=== PATIENT | male | born 1965 | race Two or more races ===

== ENCOUNTER 2020-09-11 16:14 | Emergency (ER) | payer BC ==
--- NOTE | 2020-09-11 17:26 | ED ---
SOB HPI - General Chief Complaint: Shortness of Breath Stated Complaint: SOB/+COVID/Low o2 Time Seen by Provider: 09/11/20 16:42 Source: patient Mode of arrival: wheelchair Limitations: no limitations - History of Present Illness Initial Comments: 55-year-old male presenting today for chief complaint of covert positive 2 weeks increasing shortness of breath. Patient states he tested covid 19 positive 2 weeks ago. patient states that initially symptoms were mild however now he states the past few days he has had increasing shortness of breath he den ies chest pain and leg swelling hemoptysis. He states the shortness of breath is episodic it comes and goes. Patient denies any headaches but endorses mild just. Patient denies any neck stiffness. He admits to loose stools denies nausea vomiting or abdominal pain. Patient admits to fevers and states they've been present on and off throughout the past 2 weeks and seemed be controlled with Tylenol. Patient called his primary care provider as he has persistent symptoms and he feels he should be better by now and she recommended he come to the ER for evaluation as she thinks he may have a covert pneumonia. Patient on arrival has oxygen levels in the upper 80s. he is pleasant and denies additional complaints. - Related Data Home Medications Medication Instructions Recorded Confirmed Acetaminophen [Tylenol Extra 1,000 mg PO Q6H PRN 09/11/20 09/11/20 Strength] Previous Rx's Medication Instructions Recorded Albuterol Inhaler [Ventolin Hfa 1 puff INHALATION Q4H 30 Days #60 09/11/20 Inhaler] puff Azithromycin [Zithromax Z-pack (6 0 mg PO DIRECTED #6 tab 09/11/20 tabs)] Dexamethasone [Decadron] 6 mg PO DAILY 3 Days #3 tab 09/11/20 Allergies Allergy/AdvReac Type Severity Reaction Status Date / Time No Known Allergies Allergy Verified 09/11/20 17:45 Review of Systems ROS Statement: Those systems with pertinent positive or pertinent negative responses have been documented in the HPI. ROS Other: All systems not noted in ROS Statement are negative. Past Medical History Additional Past Medical History / Comment(s): Covid 19 History of Any Multi-Drug Resistant Organisms: None Reported Past Surgical History: No Surgical Hx Reported Past Psychological History: No Psychological Hx Reported Smoking Status: Never smoker Past Alcohol Use History: Occasional Past Drug Use History: None Reported General Exam - General Exam Comments Initial Comments: General: The patient is awake and alert, in no distress Eye: +3 mm pupils are equal, round and reactive to light, extra-ocular movements are intact. No nystagmus. There is normal conjunctiva bilaterally. No signs of icterus. Ears, nose, mouth and throat: There are moist mucous membranes and no oral lesions. Neck: The neck is supple, there is no tenderness or JVD. Cardiovascular: There is a regular rate and rhythm. No murmur, rub or gallop is appreciated. Respiratory: Crackles throughout. Rhonchi and dry cough present respirations are nildly-labored, breath sounds are equal. No wheezes, stridor. Gastrointestinal: Soft, non-distended, non-tender abdomen without masses or organomegaly noted. There is no rebound or guarding present. Musculoskeletal: Normal ROM, no tenderness. Strength 5/5. Sensation intact. Radial pulses equal bilaterally 2+. Neurological: A&O x 3. CN II-XII intact grossly, There are no obvious motor or sensory deficits. Coordination appears grossly intact. Speech is normal. Skin: Skin is warm and dry and no rashes or lesions are noted. No lower extremity edema pain swelling or tenderness. Psychiatric: Cooperative, appropriate mood & affect, normal judgment. Limitations: no limitations Course Vital Signs 09/11/20 16:33 Temperature 98.9 F Pulse Rate 74 Respiratory 24 Rate Blood Pressure 121/72 O2 Sat by Pulse 89 L Oximetry - Reevaluation(s) Reevaluation #1: 95% RA when off O2 for >3 minutes 09/11/20 Reevaluation #2: remains 94-95% on RA, pt offered admission prefers discharge. will return for decreasing oxygen levels, has pulse oximeter at home. 09/11/20 Medical Decision Making - Medical Decision Making 55yo covid + hypoxic - Lab Data Result diagrams: 09/11/20 17:15 09/11/20 17:15 Lab Results 09/11/20 09/11/20 09/11/20 Range/Units 17:15 17:15 17:15 WBC 9.8 (3.8-10.6) k/uL RBC 4.89 (4.30-5.90) m/uL Hgb 14.7 (13.0-17.5) gm/dL Hct 42.3 (39.0-53.0) % MCV 86.6 (80.0-100.0) fL MCH 30.1 (25.0-35.0) pg MCHC 34.7 (31.0-37.0) g/dL RDW 12.5 (11.5-15.5) % Plt Count 275 (150-450) k/uL MPV 8.3 Neutrophils % 91 % Lymphocytes % 5 % Monocytes % 3 % Eosinophils % 0 % Basophils % 0 % Neutrophils # 8.9 H (1.3-7.7) k/uL Lymphocytes # 0.5 L (1.0-4.8) k/uL Monocytes # 0.3 (0-1.0) k/uL Eosinophils # 0.0 (0-0.7) k/uL Basophils # 0.0 (0-0.2) k/uL PT 10.6 (9.0-12.0) sec INR 1.0 (<1.2) APTT 31.9 H (22.0-30.0) sec D-Dimer 1.33 H (<0.60) mg/L FEU Sodium 129 L (137-145) mmol/L Potassium 3.8 (3.5-5.1) mmol/L Chloride 95 L (98-107) mmol/L Carbon Dioxide 22 (22-30) mmol/L Anion Gap 12 mmol/L BUN 13 (9-20) mg/dL Creatinine 0.66 (0.66-1.25) mg/dL Est GFR (CKD-EPI)AfAm >90 (>60 ml/min/1.73 sqM) Est GFR (CKD-EPI)NonAf >90 (>60 ml/min/1.73 sqM) Glucose 114 H (74-99) mg/dL Plasma Lactic Acid Bolivar (0.7-2.0) mmol/L Calcium 8.4 (8.4-10.2) mg/dL Magnesium 2.3 (1.6-2.3) mg/dL Total Bilirubin 0.7 (0.2-1.3) mg/dL AST 136 H (17-59) U/L ALT 116 H (4-49) U/L Alkaline Phosphatase 101 (38-126) U/L Lactate Dehydrogenase 1583 H (313-618) U/L Troponin I (0.000-0.034) ng/mL Total Protein 7.0 (6.3-8.2) g/dL Albumin 3.8 (3.5-5.0) g/dL 09/11/20 09/11/20 Range/Units 17:15 17:15 WBC (3.8-10.6) k/uL RBC (4.30-5.90) m/uL Hgb (13.0-17.5) gm/dL Hct (39.0-53.0) % MCV (80.0-100.0) fL MCH (25.0-35.0) pg MCHC (31.0-37.0) g/dL RDW (11.5-15.5) % Plt Count (150-450) k/uL MPV Neutrophils % % Lymphocytes % % Monocytes % % Eosinophils % % Basophils % % Neutrophils # (1.3-7.7) k/uL Lymphocytes # (1.0-4.8) k/uL Monocytes # (0-1.0) k/uL Eosinophils # (0-0.7) k/uL Basophils # (0-0.2) k/uL PT (9.0-12.0) sec INR (<1.2) APTT (22.0-30.0) sec D-Dimer (<0.60) mg/L FEU Sodium (137-145) mmol/L Potassium (3.5-5.1) mmol/L Chloride (98-107) mmol/L Carbon Dioxide (22-30) mmol/L Anion Gap mmol/L BUN (9-20) mg/dL Creatinine (0.66-1.25) mg/dL Est GFR (CKD-EPI)AfAm (>60 ml/min/1.73 sqM) Est GFR (CKD-EPI)NonAf (>60 ml/min/1.73 sqM) Glucose (74-99) mg/dL Plasma Lactic Acid Bolivar 1.4 (0.7-2.0) mmol/L Calcium (8.4-10.2) mg/dL Magnesium (1.6-2.3) mg/dL Total Bilirubin (0.2-1.3) mg/dL AST (17-59) U/L ALT (4-49) U/L Alkaline Phosphatase (38-126) U/L Lactate Dehydrogenase (313-618) U/L Troponin I <0.012 (0.000-0.034) ng/mL Total Protein (6.3-8.2) g/dL Albumin (3.5-5.0) g/dL Disposition Clinical Impression: Dyspnea, COVID-19 Disposition: HOME SELF-CARE Condition: Good Additional Instructions: Please use medication as discussed. Please follow-up with family doctor in the next 2 days. Monitor oxygen levels and shortness breath at home-if worsening please immediately return. Please return to emergency room if the symptoms increase or worsen or for any other concerns. Prescriptions: Dexamethasone [Decadron] 6 mg PO DAILY 3 Days #3 tab Albuterol Inhaler [Ventolin Hfa Inhaler] 1 puff INHALATION Q4H 30 Days #60 puff Azithromycin [Zithromax Z-pack (6 tabs)] 0 mg PO DIRECTED #6 tab Is patient prescribed a controlled substance at d/c from ED?: No Referrals: Le Light DO [Primary Care Provider] - 1-2 days Time of Disposition: 18:59
[2020-09-11 17:47] LABS: Partial Thromboplastin Time 31.9 sec (22.0-30.0); Prothrombin Time 10.6 sec (9.0-12.0)
[2020-09-11 17:56] LABS: Basophils % (A) 0 %; Eosinophils % (A) 0 %; HCT 42.3 % (39.0-53.0); HGB 14.7 gm/dL (13.0-17.5); Lymphocytes # (A) 0.5 k/uL (1.0-4.8); Lymphocytes % (A) 5 %; MCH 30.1 pg (25.0-35.0); MCHC 34.7 g/dL (31.0-37.0); MCV 86.6 fL (80.0-100.0); Mean Platelet Volume 8.3; Monocytes # (A) 0.3 k/uL (0-1.0); Monocytes % (A) 3 %; Neutrophils # (A) 8.9 k/uL (1.3-7.7); Neutrophils % (A) 91 %; Platelet Count 275 k/uL (150-450); RBC 4.89 m/uL (4.30-5.90); RDW 12.5 % (11.5-15.5); WBC 9.8 k/uL (3.8-10.6)
[2020-09-11 17:58] LABS: D-Dimer 1.33 mg/L FEU (<0.60)
[2020-09-11 18:04] LABS: ALT 116 U/L (4-49); AST 136 U/L (17-59); African American GFR (CKD) >90 (>60 ml/min/1.73 sqM); Albumin 3.8 g/dL (3.5-5.0); Alkaline Phosphatase 101 U/L (38-126); Anion Gap 12 mmol/L; Blood Urea Nitrogen 13 mg/dL (9-20); Calcium 8.4 mg/dL (8.4-10.2); Carbon Dioxide 22 mmol/L (22-30); Chloride 95 mmol/L (98-107); Glucose 114 mg/dL (74-99); LDH 1583 U/L (313-618); Magnesium 2.3 mg/dL (1.6-2.3); Non-African American GFR(CKD) >90 (>60 ml/min/1.73 sqM); Potassium 3.8 mmol/L (3.5-5.1); Sodium 129 mmol/L (137-145); Total Bilirubin 0.7 mg/dL (0.2-1.3)
--- NOTE | 2020-09-11 18:24 | XR ---
EXAMINATION TYPE: XR chest 1V portable DATE OF EXAM: 09/11/2020 COMPARISON: NONE HISTORY: Short of breath TECHNIQUE: Single view FINDINGS: Heart is slightly enlarged. There is coarse interstitial infiltrates throughout the lungs. There are chest leads. Costophrenic angles are clear. IMPRESSION: Moderate bilateral interstitial pneumonia. Borderline cardiomegaly.
[2020-09-11] MEDS ORDERED: DEXAMETHASONE SOD PHOSPHATE 4 MG/ML 1 ML VIAL IV STA (18:48)
[2020-09-11] MEDS ORDERED: AZITHROMYCIN 500 MG TAB PO STA (18:48)
--- NOTE | 2020-09-11 18:53 | CT ---
EXAMINATION TYPE: CT chest angio for PE DATE OF EXAM: 09/11/2020 COMPARISON: None HISTORY: dyspea CT DLP: 476.9 mGycm Automated exposure control for dose reduction was used. CONTRAST: Performed with IV Contrast, patient injected with 90 mL of Isovue 370. Images were obtained from the thoracic inlet to the diaphragm with IV contrast and 3-D post processed images. There is patchy groundglass interstitial infiltrates throughout the lungs. There are a few mediastina l lymph nodes that measure less than 1 cm. There are bilateral bronchial lymph nodes measuring up to 1 cm. Heart size is fairly normal. There is no pericardial effusion. There is normal contrast opacification of the pulmonary arteries. There are no filling defect. There is no pleural effusion. There is no evidence of a pulmonary mass. There is no pericardial effus ion. Upper abdominal soft tissues are intact. The bony thorax is intact. IMPRESSION: No evidence of pulmonary embolism. Diffuse groundglass interstitial pulmonary infiltrates. Extensive small mediastinal and bronchial lymphadenopathy.
[2020-09-11 19:12] VITALS: BP 128/77; PULSE 73; RESP 18; TEMP 98.2
[2020-09-11 19:28] LABS: C Reactive Protein 375.1 mg/L (<10.0)
[2020-09-12 09:55] LABS: Ferritin 5589.5 ng/mL (22.0-322.0)
== END 2020-09-11 19:24 | disposition home or self-care (01) ==
LOC: EC 16:14
DX: U07.1 COVID-19 (principal)
CPT/HCPCS: 36415; 93005; 85379; 80053; 82728; 83605; 83615; 83735; 84484; 85025; 85610; 85730; 86140; 87040; 84145; 71045; 71275; 99285; 96374; J1100; Q9967; 86704; 86803; 87340

== ENCOUNTER 2020-09-15 21:36 | Inpatient (IN) | payer BC ==
--- NOTE | 2020-09-15 22:35 | ED ---
SOB HPI - General Chief Complaint: Shortness of Breath Stated Complaint: Revist,LV,COVID+ Time Seen by Provider: 09/15/20 22:33 Source: patient, RN notes reviewed, old records reviewed Mode of arrival: ambulatory Limitations: no limitations - History of Present Illness Initial Comments: This is a 55-year-old male to the ER for evaluation patient based for evaluation regards to significant shortness of breath with known history of coronavirus. Has no history of breathing difficulties with sooner ER 4 days ago for similar complaint patient has significant shortness of breath has been on home oxygen as well as home pulse ox with pulse ox continuing to decrease while at home. Patient's been resting with no other complaints, no pain in fever off about 2 days ago MD Complaint: shortness of breath, cough, anxiety -: days(s) Severity: moderate Severity scale (1-10): 4 Quality: dull Consistency: constant Improves With: nothing Worsens With: exertion Known History Of: COPD, asthma Context: recent URI Associated Symptoms: denies other symptoms Treatments Prior to Arrival: oxygen, bronchodilator - Related Data Home Medications Medication Instructions Recorded Confirmed Acetaminophen [Tylenol Extra 1,000 mg PO Q6H PRN 09/11/20 09/15/20 Strength] Albuterol Inhaler [Ventolin Hfa 1 puff INHALATION RT-Q4H 09/15/20 09/15/20 Inhaler] Azithromycin [Zithromax Z-pack (6 See Taper PO DAILY 09/15/20 09/15/20 tabs)] Previous Rx's Medication Instructions Recorded Dexamethasone [Decadron] 6 mg PO DAILY 3 Days #3 tab 09/11/20 Allergies Allergy/AdvReac Type Severity Reaction Status Date / Time No Known Allergies Allergy Verified 09/15/20 23:05 Review of Systems ROS Statement: Those systems with pertinent positive or pertinent negative responses have been documented in the HPI. ROS Other: All systems not noted in ROS Statement are negative. Past Medical History Additional Past Medical History / Comment(s): Covid 19 History of Any Multi-Drug Resistant Organisms: None Reported Past Surgical History: No Surgical Hx Reported Past Psychological History: No Psychological Hx Reported Smoking Status: Never smoker Past Alcohol Use History: Occasional Past Drug Use History: None Reported General Exam Limitations: no limitations General appearance: alert, in no apparent distress, anxious, in distress (no significant distress) Head exam: Present: atraumatic, normocephalic, normal inspection Eye exam: Present: normal appearance, PERRL, EOMI. Absent: scleral icterus, conjunctival injection, periorbital swelling ENT exam: Present: normal exam, mucous membranes moist Neck exam: Present: normal inspection. Absent: tenderness, meningismus, lymphadenopathy Respiratory exam: Present: respiratory distress, rhonchi, accessory muscle use, decreased breath sounds, prolonged expiratory. Absent: wheezes, rales, stridor Cardiovascular Exam: Present: regular rate, normal rhythm, normal heart sounds. Absent: systolic murmur, diastolic murmur, rubs, gallop, clicks GI/Abdominal exam: Present: soft, normal bowel sounds. Absent: distended, tenderness, guarding, rebound, rigid Extremities exam: Present: normal inspection, full ROM, normal capillary refill. Absent: tenderness, pedal edema, joint swelling, calf tenderness Back exam: Present: normal inspection Neurological exam: Present: alert, oriented X3, CN II-XII intact Psychiatric exam: Present: normal affect, normal mood Skin exam: Present: warm, dry, intact, normal color. Absent: rash Course Vital Signs 09/15/20 09/15/20 09/15/20 21:39 22:32 23:26 Temperature 99.8 F H Pulse Rate 83 78 Respiratory 26 H 22 20 Rate Blood Pressure 107/63 118/65 O2 Sat by Pulse 82 L 88 L Oximetry - Reevaluation(s) Reevaluation #1: 09/16/20 00:11 Medical record is reviewed 09/16/20 00:11 Prior ER visit is reviewed Reevaluation #2: 09/16/20 00:11 Patient osculation is improving now on high flow nasal cannula humidified - Consultations Consultation #1: Spoke with Dr. melita BUSH to agrees to this admission Medical Decision Making - Medical Decision Making 55 male with coronavirus pneumonia has coronavirus with hypoxia on significant oxygen requirement. Patient is to be admitted for persistent supplemental O2 - Lab Data Result diagrams: 09/15/20 22:05 09/15/20 22:05 Lab Results 09/15/20 09/15/20 09/15/20 Range/Units 22:05 22:05 22:05 WBC 14.8 H (3.8-10.6) k/uL RBC 4.75 (4.30-5.90) m/uL Hgb 14.5 (13.0-17.5) gm/dL Hct 41.5 (39.0-53.0) % MCV 87.4 (80.0-100.0) fL MCH 30.6 (25.0-35.0) pg MCHC 35.0 (31.0-37.0) g/dL RDW 12.5 (11.5-15.5) % Plt Count 422 (150-450) k/uL MPV 7.8 Neutrophils % 86 % Lymphocytes % 6 % Monocytes % 5 % Eosinophils % 0 % Basophils % 2 % Neutrophils # 12.8 H (1.3-7.7) k/uL Lymphocytes # 0.8 L (1.0-4.8) k/uL Monocytes # 0.7 (0-1.0) k/uL Eosinophils # 0.1 (0-0.7) k/uL Basophils # 0.3 H (0-0.2) k/uL PT 11.1 (9.0-12.0) sec INR 1.1 (<1.2) APTT 24.6 (22.0-30.0) sec D-Dimer 3.55 H (<0.60) mg/L FEU Sodium 130 L (137-145) mmol/L Potassium 4.4 (3.5-5.1) mmol/L Chloride 99 (98-107) mmol/L Carbon Dioxide 25 (22-30) mmol/L Anion Gap 6 mmol/L BUN 10 (9-20) mg/dL Creatinine 0.60 L (0.66-1.25) mg/dL Est GFR (CKD-EPI)AfAm >90 (>60 ml/min/1.73 sqM) Est GFR (CKD-EPI)NonAf >90 (>60 ml/min/1.73 sqM) Glucose 118 H (74-99) mg/dL Plasma Lactic Acid Bolivar (0.7-2.0) mmol/L Calcium 8.1 L (8.4-10.2) mg/dL Magnesium 2.0 (1.6-2.3) mg/dL Total Bilirubin 0.9 (0.2-1.3) mg/dL AST 62 H (17-59) U/L ALT 101 H (4-49) U/L Alkaline Phosphatase 84 (38-126) U/L Lactate Dehydrogenase 1372 H (313-618) U/L C-Reactive Protein 152.0 H (<10.0) mg/L Total Protein 6.6 (6.3-8.2) g/dL Albumin 3.3 L (3.5-5.0) g/dL Coronavirus (PCR) (Not Detectd) 09/15/20 09/15/20 Range/Units 22:05 22:37 WBC (3.8-10.6) k/uL RBC (4.30-5.90) m/uL Hgb (13.0-17.5) gm/dL Hct (39.0-53.0) % MCV (80.0-100.0) fL MCH (25.0-35.0) pg MCHC (31.0-37.0) g/dL RDW (11.5-15.5) % Plt Count (150-450) k/uL MPV Neutrophils % % Lymphocytes % % Monocytes % % Eosinophils % % Basophils % % Neutrophils # (1.3-7.7) k/uL Lymphocytes # (1.0-4.8) k/uL Monocytes # (0-1.0) k/uL Eosinophils # (0-0.7) k/uL Basophils # (0-0.2) k/uL PT (9.0-12.0) sec INR (<1.2) APTT (22.0-30.0) sec D-Dimer (<0.60) mg/L FEU Sodium (137-145) mmol/L Potassium (3.5-5.1) mmol/L Chloride (98-107) mmol/L Carbon Dioxide (22-30) mmol/L Anion Gap mmol/L BUN (9-20) mg/dL Creatinine (0.66-1.25) mg/dL Est GFR (CKD-EPI)AfAm (>60 ml/min/1.73 sqM) Est GFR (CKD-EPI)NonAf (>60 ml/min/1.73 sqM) Glucose (74-99) mg/dL Plasma Lactic Acid Bolivar 1.9 (0.7-2.0) mmol/L Calcium (8.4-10.2) mg/dL Magnesium (1.6-2.3) mg/dL Total Bilirubin (0.2-1.3) mg/dL AST (17-59) U/L ALT (4-49) U/L Alkaline Phosphatase (38-126) U/L Lactate Dehydrogenase (313-618) U/L C-Reactive Protein (<10.0) mg/L Total Protein (6.3-8.2) g/dL Albumin (3.5-5.0) g/dL Coronavirus (PCR) Detected A (Not Detectd) - EKG Data -: EKG Interpreted by Me (EKG shows sinus rhythm rate of 76 OK 138 QRS 76 QTC 425) - Radiology Data Radiology results: report reviewed (Chest x-ray does show interstitial pneumonitis, CTA), image reviewed Critical Care Time Critical Care Time: Yes Total Critical Care Time: 31 Disposition Clinical Impression: Dyspnea, COVID-19, Pneumonia due to COVID-19 virus, Weakness, Hypoxia Disposition: ADMITTED IP TO THIS [facility] Condition: Serious Is patient prescribed a controlled substance at d/c from ED?: No Referrals: Le Light DO [Primary Care Provider] - 1-2 days
[2020-09-15] MEDS ORDERED: ALBUTEROL HFA INHALER INHALATION STA (22:36)
[2020-09-15 22:44] LABS: Basophils # (A) 0.3 k/uL (0-0.2); Basophils % (A) 2 %; Eosinophils # (A) 0.1 k/uL (0-0.7); Eosinophils % (A) 0 %; HCT 41.5 % (39.0-53.0); HGB 14.5 gm/dL (13.0-17.5); Lymphocytes # (A) 0.8 k/uL (1.0-4.8); Lymphocytes % (A) 6 %; MCH 30.6 pg (25.0-35.0); MCV 87.4 fL (80.0-100.0); Mean Platelet Volume 7.8; Monocytes # (A) 0.7 k/uL (0-1.0); Monocytes % (A) 5 %; Neutrophils # (A) 12.8 k/uL (1.3-7.7); Neutrophils % (A) 86 %; Platelet Count 422 k/uL (150-450); RBC 4.75 m/uL (4.30-5.90); RDW 12.5 % (11.5-15.5); WBC 14.8 k/uL (3.8-10.6)
[2020-09-15 22:53] LABS: ALT 101 U/L (4-49); AST 62 U/L (17-59); African American GFR (CKD) >90 (>60 ml/min/1.73 sqM); Albumin 3.3 g/dL (3.5-5.0); Alkaline Phosphatase 84 U/L (38-126); Anion Gap 6 mmol/L; Blood Urea Nitrogen 10 mg/dL (9-20); Calcium 8.1 mg/dL (8.4-10.2); Carbon Dioxide 25 mmol/L (22-30); Chloride 99 mmol/L (98-107); Glucose 118 mg/dL (74-99); LDH 1372 U/L (313-618); Non-African American GFR(CKD) >90 (>60 ml/min/1.73 sqM); Potassium 4.4 mmol/L (3.5-5.1); Sodium 130 mmol/L (137-145); Total Bilirubin 0.9 mg/dL (0.2-1.3); Total Protein 6.6 g/dL (6.3-8.2)
--- NOTE | 2020-09-15 23:03 | XR ---
EXAMINATION TYPE: XR chest 1V portable DATE OF EXAM: 09/15/2020 COMPARISON: September 11, 2020 HISTORY: Short of breath TECHNIQUE: Single view FINDINGS: Heart is enlarged. There is pulmonary interstitial infiltrates. There is no pleural effusio n. There are chest leads. Pulmonary vascularity is difficult to evaluate. IMPRESSION: Pulmonary interstitial pneumonia. Heart failure not excluded. Interstitial pneumonia is slightly worse than previous exam.
[2020-09-15 23:12] LABS: INR 1.1 (<1.2); Partial Thromboplastin Time 24.6 sec (22.0-30.0); Prothrombin Time 11.1 sec (9.0-12.0)
[2020-09-15 23:44] LABS: D-Dimer 3.55 mg/L FEU (<0.60)
[2020-09-15] MEDS ORDERED: SODIUM CHLORIDE 0.9% 1,000 ML IV SCH (23:45)
[2020-09-15] MEDS ORDERED: AZITHROMYCIN 500 MG in SODIUM CHLORIDE 0.9% 250 ML IVPB STA (23:57)
[2020-09-16] MEDS ORDERED: DEXAMETHASONE SOD PHOSPHATE 10 MG/ML 1 ML VIAL IV STA
--- NOTE | 2020-09-16 00:12 | CT ---
EXAMINATION TYPE: CT angio chest DATE OF EXAM: 09/16/2020 COMPARISON: September 11, 2020 HISTORY: R/O PE, SOB CT DLP: 505.50 mGycm Automated exposure control for dose reduction was used. CONTRAST: Performed with IV Contrast, patient injected with 80 mL of Isovue 370. There are 3-D post processed images. There is extensive pulmonary interstitial groundglass infiltrate in both lungs. Heart appears normal in size. There is no pericardial effusion. There is no pleural effusion. Upper abdominal soft tissues are intact. There is normal contrast opacification of the pulmonary arteries. There are no filling defects. There are a few bilateral bronchial lymph nodes that measure up to 1 cm. There are a few mediastinal perit latasha lymph nodes that measure up to 1 cm. Thoracic aorta is intact. There is no aneurysm or dissec tion. The ascending aorta measures 3.2 cm. Thoracic spine is intact. There is no compression fracture. Sternum is intact. Upper abdominal soft t issues are intact. IMPRESSION: No evidence of pulmonary embolism. Diffuse groundglass interstitial pneumonia appears slightly worse than recent exam. Mild mediastinal and bronchial adenopathy unchanged.
[2020-09-16] MEDS ORDERED: HEPARIN SODIUM,PORCINE 5,000 UNIT/ML 1 ML VIAL IV ONE (00:36)
[2020-09-16] MEDS ORDERED: HEPARIN SODIUM,PORCINE 5,000 UNIT/ML 1 ML VIAL IV PRN (00:36)
[2020-09-16] MEDS ORDERED: HEPARIN SOD,PORK IN 0.45% NACL 25,000 UNIT in 0.45% NACL 1 250ML.BAG IV SCH (00:45)
--- NOTE | 2020-09-16 07:49 | US ---
EXAMINATION TYPE: US venous doppler duplex LE BI DATE OF EXAM: 09/16/2020 7:27 AM COMPARISON: NONE CLINICAL HISTORY: DVT. positive COVID, no symptoms SIDE PERFORMED: Bilateral TECHNIQUE: The lower extremity deep venous system is examined utilizing real time linear array sonog gabriela with graded compression, doppler sonography and color-flow sonography. VESSELS IMAGED: Common Femoral Vein Deep Femoral Vein Greater Saphenous Vein * Femoral Vein Popliteal Vein Small Saphenous Vein * Proximal Calf Veins (* superficial vessels) Right Leg: Negative for DVT, rouleaux flow seen Left Leg: Negative for DVT, rouleaux flow seen Grayscale, color doppler, spectral doppler imaging performed of the deep veins of the bilateral lower extremities. There is normal flow, compressibility, vascular waveforms. IMPRESSION: No ultrasound evidence for acute DVT in either lower extremity.
[2020-09-16] MEDS: ALBUTEROL HFA INHALER INHALATION PRN ×2 (08:20→11:20)
[2020-09-16] MEDS ORDERED: ENOXAPARIN 40 MG/0.4 ML SYRINGE SQ SCH (09:00)
[2020-09-16 10:53] LABS: Ferritin 3070.3 ng/mL (22.0-322.0)
[2020-09-16] MEDS ORDERED: ENOXAPARIN 60 MG/0.6 ML SYRINGE SQ SCH ×2 (12:00→21:00)
--- NOTE | 2020-09-16 12:25 | P.HPIM ---
History of Present Illness 55-year-old male came in with compensative shortness of breath patient was diagnosed with the cold wind 19 as per the patient he was diagnosed with for more than 2 weeks ago started having shortness of breath for last few days. Patient is positive for coronary patient is requiring 10 L of oxygen. As have elevated d-dimer and other informative markers. Patient is bit hypotensive patient denied any nausea vomiting diarrhea. had mild low-grade fever today. CT angios the chest is consistent with the covid 19 pneumonia. No evidence of pulmonary embolism or any other infiltrate patient did have bronchial and mediastinal adenopathy. She was using azithromycin and Decadron as an outpatient. Review of Systems REVIEW OF SYSTEMS: CONSTITUTIONAL: As mentioned in HPI HEENT: No recent visual problems or hearing problems. Denied any sore throat. CARDIOVASCULAR: No chest pain, orthopnea, PND, no palpitations, no syncope. PULMONARY:no hemoptysis. GASTROINTESTINAL: No diarrhea, no nausea, no vomiting, no abdominal pain. NEUROLOGICAL: No headaches, no weakness, no numbness. HEMATOLOGICAL: Denies any bleeding or petechiae. GENITOURINARY: Denies any burning micturition, frequency, or urgency. MUSCULOSKELETAL/RHEUMATOLOGICAL: Denies any joint pain, swelling, or any muscle pain. ENDOCRINE: Denies any polyuria or polydipsia. The rest of the 14-point review of systems is negative. Past Medical History Additional Past Medical History / Comment(s): Covid 19 History of Any Multi-Drug Resistant Organisms: None Reported Past Surgical History: No Surgical Hx Reported Past Anesthesia/Blood Transfusion Reactions: No Reported Reaction Past Psychological History: No Psychological Hx Reported Smoking Status: Former smoker Past Alcohol Use History: Occasional Past Drug Use History: None Reported Medications and Allergies Home Medications Medication Instructions Recorded Confirmed Type Acetaminophen [Tylenol Extra 1,000 mg PO Q6H PRN 09/11/20 09/15/20 History Strength] Dexamethasone [Decadron] 6 mg PO DAILY 3 Days #3 tab 09/11/20 09/15/20 Rx Albuterol Inhaler [Ventolin Hfa 1 puff INHALATION RT-Q4H 09/15/20 09/15/20 History Inhaler] Azithromycin [Zithromax Z-pack (6 See Taper PO DAILY 09/15/20 09/15/20 History tabs)] Allergies Allergy/AdvReac Type Severity Reaction Status Date / Time No Known Allergies Allergy Verified 09/15/20 23:05 Physical Exam Vitals: Vital Signs Temp Pulse Pulse Resp BP BP Pulse Ox 09/16/20 08:00 97.5 F L 60 18 95/60 91 L 09/16/20 05:00 54 L 20 09/16/20 04:00 98.9 F 54 L 18 97/60 94 L 09/16/20 01:00 98.9 F 71 20 113/69 92 L 09/16/20 00:40 56 L 20 103/58 92 L 09/16/20 00:00 74 22 117/71 91 L 09/15/20 23:26 78 20 118/65 88 L 09/15/20 22:32 22 09/15/20 21:39 99.8 F H 83 26 H 107/63 82 L Intake and Output 09/15/20 09/16/20 09/16/20 22:59 06:59 14:59 Intake Total 122.74 Output Total 650 Balance -527.26 Intake: Intake, IV Titration 122.74 Amount Heparin Sod,Pork in 0.45% 122.74 NaCl 25,000 unit In 0.45 % NaCl 1 250ml.bag @ 18 UNITS/KG/HR 16.329 mls/hr IV .[id number] [facility] Rx#: [id number] Output: Urine 650 Other: Voiding Method Urinal Urinal # Voids 500 2 Weight 90.718 kg 90.718 kg PHYSICAL EXAMINATION: GENERAL: The patient is alert and oriented x3, not in any acute distress. Well developed, well nourished. HEENT: Pupils are round and equally reacting to light. EOMI. No scleral icterus. No conjunctival pallor. Normocephalic, atraumatic. No pharyngeal erythema. No thyromegaly. CARDIOVASCULAR: S1 and S2 present. No murmurs, rubs, or gallops. PULMONARY: Chest is clear to auscultation, no wheezing or crackles. ABDOMEN: Soft, nontender, nondistended, normoactive bowel sounds. No palpable organomegaly. MUSCULOSKELETAL: No joint swelling or deformity. EXTREMITIES: No cyanosis, clubbing, or pedal edema. NEUROLOGICAL: Gross neurological examination did not reveal any focal deficits. SKIN: No rashes. Note: Because of COVID 19 isolation, some of the history and physical exam findings are indirect and obtained from nursing staff, and other physician examinations to avoid unnecessary contact with the patient. Results CBC & Chem 7: 09/15/20 22:05 09/15/20 22:05 Labs: Abnormal Lab Results - Last 24 Hours (Table) 09/15/20 09/15/20 09/15/20 Range/Units 22:05 22:05 22:05 WBC 14.8 H (3.8-10.6) k/uL Neutrophils # 12.8 H (1.3-7.7) k/uL Lymphocytes # 0.8 L (1.0-4.8) k/uL Basophils # 0.3 H (0-0.2) k/uL APTT (22.0-30.0) sec D-Dimer 3.55 H (<0.60) mg/L FEU Sodium 130 L (137-145) mmol/L Creatinine 0.60 L (0.66-1.25) mg/dL Glucose 118 H (74-99) mg/dL Calcium 8.1 L (8.4-10.2) mg/dL Ferritin 3070.3 H (22.0-322.0) ng/mL AST 62 H (17-59) U/L ALT 101 H (4-49) U/L Lactate Dehydrogenase 1372 H (313-618) U/L C-Reactive Protein 152.0 H (<10.0) mg/L Albumin 3.3 L (3.5-5.0) g/dL Coronavirus (PCR) (Not Detectd) 09/15/20 09/16/20 Range/Units 22:37 07:40 WBC (3.8-10.6) k/uL Neutrophils # (1.3-7.7) k/uL Lymphocytes # (1.0-4.8) k/uL Basophils # (0-0.2) k/uL APTT 106.7 H* (22.0-30.0) sec D-Dimer (<0.60) mg/L FEU Sodium (137-145) mmol/L Creatinine (0.66-1.25) mg/dL Glucose (74-99) mg/dL Calcium (8.4-10.2) mg/dL Ferritin (22.0-322.0) ng/mL AST (17-59) U/L ALT (4-49) U/L Lactate Dehydrogenase (313-618) U/L C-Reactive Protein (<10.0) mg/L Albumin (3.5-5.0) g/dL Coronavirus (PCR) Detected A (Not Detectd) Thrombosis Risk Factor Assmnt - Choose All That Apply Each Factor Represents 1 point: Age 41-60 years Other Risk Factors: No Other congenital or acquired thrombophilia - If yes, enter type in comment: No Thrombosis Risk Factor Assessment Total Risk Factor Score: 1 Thrombosis Risk Factor Assessment Level: Low Risk Assessment and Plan Plan: -Acute hypoxic respiratory failure secondary to Covid 19 can you with the oxygen as needed and close clinical monitoring, patient had elevated d-dimer because of which patient was started on 60 mg twice a day of Lovenox. He does have s ignificantly elevated inflammatory markers patient was started on Decadron as well. Patient will need Remdesevir. Infectious disease and pulmonary were consulted -Hypovolemic hyponatremia: IV fluids at 75 mL per hour -Elevated liver enzymes secondary to coronavirus infection. -Ruled out pulmonary embolism. -DVT prophylaxis as mentioned above GI prophylaxis with Pepcid
[2020-09-16] MEDS: dexAMETHasone 2 MG TAB PO SCH (13:01)
--- NOTE | 2020-09-16 15:14 | P.CNPUL ---
History of Present Illness Consult date: 09/16/20 Reason for consult: dyspnea, pneumonia History of present illness: 55-year-old male patient diagnosed having coronavirus/Coreg 19 infection more than 2 weeks ago and he started having shortness of breath. His ago. The patient currently is in the emergency department and is quite hypoxic on 10 L of oxygen nasal cannula. The patient started having symptoms on 08/31/2020 and the patient was having on and off fever. He consulted with a physician. The testing was done and he was positive at that time. His condition got worse and the patient's breathing was getting worse over this past few days and for that reason he came into the hospital. On admission, the patient's ferritin level was 3017, LDH was 1372, CRP was 172. Note that the patient was in the emergency department on 09/11/2020. At times he was diagnosed having COVID 19 and the patient a pulse ox of 94-95% on room air oxygen and the patient was asked to monitor his pulse ox and he was discharged home. He was discharged home on Decadron 6 mg along with Zithromax and albuterol rescue inhaler. Few days following that, the patient came back to the hospital for worsening shortness of breath and hypoxemia. Note that the patient to CAT scans on 09/11/2020 09/16/2020 and there was obvious worsening in the diffuse groundglass bilateral pulmonary infiltrates. No evidence of any pulmonary embolism. Currently is on oxygen at 10 L per minute nasal cannula. His pulse ox is around 88%. Note that the CAT scan of the chest was done on 09/15/2020 raised the possibility of a small filling defect in the right lower lobe pulmonary artery branch and the patient had a Doppler of the lower extremities was negative and the patient was started on anticoagulants and the patient is currently on Lovenox 50 mg subcu every 12 hours. Review of Systems CONSTITUTIONAL: As mentioned in HPI HEENT: No recent visual problems or hearing problems. Denied any sore throat. CARDIOVASCULAR: No chest pain, orthopnea, PND, no palpitations, no syncope. PULMONARY:no hemoptysis.worsening shortness of breath GASTROINTESTINAL: No diarrhea, no nausea, no vomiting, no abdominal pain. NEUROLOGICAL: No headaches, no weakness, no numbness. HEMATOLOGICAL: Denies any bleeding or petechiae. GENITOURINARY: Denies any burning micturition, frequency, or urgency. MUSCULOSKELETAL/RHEUMATOLOGICAL: Denies any joint pain, swelling, or any muscle pain. ENDOCRINE: Denies any polyuria or polydipsia. The rest of the 14-point review of systems is negative. Past Medical History Additional Past Medical History / Comment(s): Covid 19 History of Any Multi-Drug Resistant Organisms: None Reported Past Surgical History: No Surgical Hx Reported Past Anesthesia/Blood Transfusion Reactions: No Reported Reaction Past Psychological History: No Psychological Hx Reported Smoking Status: Former smoker Past Alcohol Use History: Occasional Past Drug Use History: None Reported Medications and Allergies Home Medications Medication Instructions Recorded Confirmed Type Acetaminophen [Tylenol Extra 1,000 mg PO Q6H PRN 09/11/20 09/15/20 History Strength] Dexamethasone [Decadron] 6 mg PO DAILY 3 Days #3 tab 09/11/20 09/15/20 Rx Albuterol Inhaler [Ventolin Hfa 1 puff INHALATION RT-Q4H 09/15/20 09/15/20 History Inhaler] Azithromycin [Zithromax Z-pack (6 See Taper PO DAILY 09/15/20 09/15/20 History tabs)] Allergies Allergy/AdvReac Type Severity Reaction Status Date / Time No Known Allergies Allergy Verified 09/15/20 23:05 Physical Exam Vitals: Vital Signs Temp Pulse Pulse Resp BP BP Pulse Ox 09/16/20 08:00 97.5 F L 60 18 95/60 91 L 09/16/20 05:00 54 L 20 09/16/20 04:00 98.9 F 54 L 18 97/60 94 L 09/16/20 01:00 98.9 F 71 20 113/69 92 L 09/16/20 00:40 56 L 20 103/58 92 L 09/16/20 00:00 74 22 117/71 91 L 09/15/20 23:26 78 20 118/65 88 L 09/15/20 22:32 22 09/15/20 21:39 99.8 F H 83 26 H 107/63 82 L Intake and Output 09/16/20 09/16/20 09/16/20 06:59 14:59 22:59 Intake Total 122.74 Output Total 650 Balance -527.26 Intake: Intake, IV Titration 122.74 Amount Heparin Sod,Pork in 0.45% 122.74 NaCl 25,000 unit In 0.45 % NaCl 1 250ml.bag @ 18 UNITS/KG/HR 16.329 mls/hr IV .[id number] [facility] Rx#: [id number] Output: Urine 650 Other: Voiding Method Urinal Urinal # Voids 500 2 Weight 90.718 kg GENERAL: The patient is alert and oriented x3, not in any acute distress. Well developed, well nourished. the patient is currently on 10 L of oxygen by nasal cannula HEENT: Pupils are round and equally reacting to light. EOMI. No scleral icterus. No conjunctival pallor. Normocephalic, atraumatic. No pharyngeal erythema. No thyromegaly. CARDIOVASCULAR: S1 and S2 present. No murmurs, rubs, or gallops. PULMONARY: Chest is clear to auscultation, no wheezingindications bilateral crackles. ABDOMEN: Soft, nontender, nondistended, normoactive bowel sounds. No palpable organomegaly. MUSCULOSKELETAL: No joint swelling or deformity. EXTREMITIES: No cyanosis, clubbing, or pedal edema. NEUROLOGICAL: Gross neurological examination did not reveal any focal deficits. SKIN: No rashes. Results - Laboratory Findings CBC and BMP: 09/15/20 22:05 09/15/20 22:05 ABG WBC 14.8 k/uL (3.8-10.6) H 09/15/20 22:05 RBC 4.75 m/uL (4.30-5.90) 09/15/20 22:05 Hgb 14.5 gm/dL (13.0-17.5) 09/15/20 22:05 Hct 41.5 % (39.0-53.0) 09/15/20 22:05 MCV 87.4 fL (80.0-100.0) 09/15/20 22:05 MCH 30.6 pg (25.0-35.0) 09/15/20 22:05 MCHC 35.0 g/dL (31.0-37.0) 09/15/20 22:05 RDW 12.5 % (11.5-15.5) 09/15/20 22:05 Plt Count 422 k/uL (150-450) 09/15/20 22:05 MPV 7.8 09/15/20 22:05 Neutrophils % 86 % 09/15/20 22:05 Lymphocytes % 6 % 09/15/20 22:05 Monocytes % 5 % 09/15/20 22:05 Eosinophils % 0 % 09/15/20 22:05 Basophils % 2 % 09/15/20 22:05 Neutrophils # 12.8 k/uL (1.3-7.7) H 09/15/20 22:05 Lymphocytes # 0.8 k/uL (1.0-4.8) L 09/15/20 22:05 Monocytes # 0.7 k/uL (0-1.0) 09/15/20 22:05 Eosinophils # 0.1 k/uL (0-0.7) 09/15/20 22:05 Basophils # 0.3 k/uL (0-0.2) H 09/15/20 22:05 PT 11.1 sec (9.0-12.0) 09/15/20 22:05 INR 1.1 (<1.2) 09/15/20 22:05 APTT 106.7 sec (22.0-30.0) H* 09/16/20 07:40 D-Dimer 3.55 mg/L FEU (<0.60) H 09/15/20 22:05 Sodium 130 mmol/L (137-145) L 09/15/20 22:05 Potassium 4.4 mmol/L (3.5-5.1) 09/15/20 22:05 Chloride 99 mmol/L (98-107) 09/15/20 22:05 Carbon Dioxide 25 mmol/L (22-30) 09/15/20 22:05 Anion Gap 6 mmol/L 09/15/20 22:05 BUN 10 mg/dL (9-20) 09/15/20 22:05 Creatinine 0.60 mg/dL (0.66-1.25) L 09/15/20 22:05 Est GFR (CKD-EPI)AfAm >90 (>60 ml/min/1.73 sqM) 09/15/20 22:05 Est GFR (CKD-EPI)NonAf >90 (>60 ml/min/1.73 sqM) 09/15/20 22:05 Glucose 118 mg/dL (74-99) H 09/15/20 22:05 Plasma Lactic Acid [place] 1.9 mmol/L (0.7-2.0) 09/15/20 22:05 Calcium 8.1 mg/dL (8.4-10.2) L 09/15/20 22:05 Magnesium 2.0 mg/dL (1.6-2.3) 09/15/20 22:05 Ferritin 3070.3 ng/mL (22.0-322.0) H 09/15/20 22:05 Total Bilirubin 0.9 mg/dL (0.2-1.3) 09/15/20 22:05 AST 62 U/L (17-59) H 09/15/20 22:05 ALT 101 U/L (4-49) H 09/15/20 22:05 Alkaline Phosphatase 84 U/L (38-126) 09/15/20 22:05 Lactate Dehydrogenase 1372 U/L (313-618) H 09/15/20 22:05 C-Reactive Protein 152.0 mg/L (<10.0) H 09/15/20 22:05 Total Protein 6.6 g/dL (6.3-8.2) 09/15/20 22:05 Albumin 3.3 g/dL (3.5-5.0) L 09/15/20 22:05 Procalcitonin 0.08 ng/mL (0.02-0.09) 09/15/20 22:05 PT/INR, D-dimer PT 11.1 sec (9.0-12.0) 09/15/20 22:05 INR 1.1 (<1.2) 09/15/20 22:05 D-Dimer 3.55 mg/L FEU (<0.60) H 09/15/20 22:05 Abnormal lab findings: Abnormal Labs 09/15/20 09/15/20 09/15/20 22:05 22:05 22:05 WBC 14.8 H Neutrophils # 12.8 H Lymphocytes # 0.8 L Basophils # 0.3 H APTT D-Dimer 3.55 H Sodium 130 L Creatinine 0.60 L Glucose 118 H Calcium 8.1 L Ferritin 3070.3 H AST 62 H ALT 101 H Lactate Dehydrogenase 1372 H C-Reactive Protein 152.0 H Albumin 3.3 L Coronavirus (PCR) 09/15/20 09/16/20 22:37 07:40 WBC Neutrophils # Lymphocytes # Basophils # APTT 106.7 H* D-Dimer Sodium Creatinine Glucose Calcium Ferritin AST ALT Lactate Dehydrogenase C-Reactive Protein Albumin Coronavirus (PCR) Detected A - Diagnostic Findings Chest x-ray: image reviewed CT scan - chest: image reviewed Assessment and Plan Plan: 1 acute bilateral Covid 19 pneumonia with interval worsening in the bilateral groundglass pulmonary infiltrates as noted on the CAT scan of the chest that was done on 09/15/2020 and compared to the previous CTA of 09/11/2020.. Original diagnosis was on 08/31/2020 and the patient is currently outside the window for Remdesivir treatment, and he was receiving Decadron on an outpatient basis. 2 questionable filling defect in the right lower lobe pulmonary artery branch,, Doppler of the lower extremities negative. 3 acute hypoxic respiratory failure secondary to above 4 shortness of breath secondary to above 5 elevated inflammatory markers secondary to above Plan the patient is outside the window for Remdesivir Treatment Offered therapeutic dose of Lovenox 1 mg per KG every 12 hours Offer her Decadron 6 mg by mouth was started the patient on supplements including vitamin C, vitamin D, Zinc, melatonin and Pepcid oxygen at 10 L per minute nasal cannula and titrated flow to maintain a saturation above 90% We'll continue to follow
[2020-09-16] MEDS: ENOXAPARIN 100 MG/ML SYRINGE SQ SCH (15:25)
[2020-09-16] MEDS: SODIUM CHLORIDE 0.9% 1,000 ML IV SCH (15:27)
[2020-09-16] MEDS: ALBUTEROL HFA INHALER INHALATION SCH ×2 (16:24→20:42)
[2020-09-16] MEDS: FAMOTIDINE 20 MG TAB PO SCH (22:10)
--- NOTE | 2020-09-17 00:09 | CONS ---
CONSULTATION DATE OF SERVICE: 09/16/2020 REASON FOR STAY: COVID-19 infection. HISTORY OF PRESENT ILLNESS: The patient is a 55-year-old male who started having symptoms now two days ago and this patient started having increasing shortness of breath. The patient did have body aches and sore throat initially. No vomiting. The patient mentioned he came to the ER about a week ago and the patient was diagnosed with COVID-19 infection. The patient had been sent home on steroids and Zithromax. The patient mentions coming back to the ER last night with worsening shortness of breath, unable to take a deep breath. The patient also complaining of cough which is moderate intensity, not bringing up any sputum. He did have some lower ribcage chest pain from taking a deep breath or cough. No nausea, no vomiting. No abdominal pain or any diarrhea. With these symptoms the patient was evaluated by the ER physician. On arrival to the ER, the patient has been running a low-grade fever of 99.8 degrees Fahrenheit. He was hypoxic with O2 sats of 92% on room air. Currently on 15 L high-flow oxygen. The patient did have elevated white count 14.8 with evidence of leukopenia. D-dimer was elevated at 3.55. [place] PCR positive. Procalcitonin was normal. CRP elevated. The patient did have chest involvement. CT angiogram of the chest reviewed and did show evidence of PE and bilateral ground-glass opacities. The patient has been started on Lovenox therapeutic dose in addition to dexamethasone and IV fluids and admitted to hospital. Infectious Disease was consulted for further management. REVIEW OF SYSTEMS: Positive points have been mentioned in HPI. Rest of the systems are negative. PAST MEDICAL HISTORY: No major illnesses. PAST SURGICAL HISTORY: No surgeries. SOCIAL HISTORY: No smoking, ETOH , and no drug use. FAMILY HISTORY: No pertinent findings noticed. ALLERGIES: No known drug allergies. MEDICATIONS: The patient is currently on IV fluids, Pepcid, Lovenox. Dexamethasone and Ventolin inhaler. PHYSICAL EXAMINATION: Blood pressure is 100/51 with a pulse of 64, temperature is 97.7 he is 93% on 15 L high flow oxygen. General description is an elderly male lying in bed in mild respiratory distress. Mild tachypnea, but no accessory muscles of respiration use. Respiratory system: Unlabored breathing. Coarse crackles bilaterally. No wheeze. HEART: S1, S2. Regular rate and rhythm. ABDOMEN: Soft, no tenderness. EXTREMITIES: No edema of the feet. LABS: Hemoglobin is 14.4, white count 14.8, D. dimer 3.55, creatinine 0.60. Liver enzymes mildly elevated. LDH/CRP elevated. Procalcitonin was normal. DIAGNOSTIC IMPRESSION/PLAN: 1. Patient admitted to the hospital with increasing shortness of breath, symptoms more than 10 days with evidence of bilateral pneumonia on the CT and a chest x-ray, likely acute Covid 19, failing outpatient oral Zithromax and Dexamethasone therapy. 2. Patient with evidence of pulmonary embolism. 3. No evidence of secondary bacterial pneumonia. PLAN: 1. The patient may benefit for high dose of steroids than the standard dose, will discuss with Pulmonary. 2. Continue with the Lovenox. We will add zinc sulfate and vitamin C. 3. Patient out of the therapeutic window for Remdesivir but may benefit from . 4. support. 5. We will follow on clinical condition and further adjust medication if needed. Thank you for this consultation. Will follow this patient along with you. MMODL / IJN: [id number] /
[2020-09-17] MEDS: ALBUTEROL HFA INHALER INHALATION SCH ×6 (01:00→20:19)
[2020-09-17] MEDS: SODIUM CHLORIDE 0.9% 1,000 ML IV SCH ×2 (04:27→16:26)
[2020-09-17 07:29] LABS: Basophils # (A) 0.1 k/uL (0-0.2); Basophils % (A) 0 %; Eosinophils % (A) 0 %; HCT 37.6 % (39.0-53.0); HGB 12.5 gm/dL (13.0-17.5); Lymphocytes # (A) 0.8 k/uL (1.0-4.8); Lymphocytes % (A) 7 %; MCH 29.9 pg (25.0-35.0); MCHC 33.2 g/dL (31.0-37.0); MCV 90.1 fL (80.0-100.0); Mean Platelet Volume 7.7; Monocytes # (A) 0.5 k/uL (0-1.0); Monocytes % (A) 4 %; Neutrophils # (A) 9.8 k/uL (1.3-7.7); Neutrophils % (A) 87 %; Platelet Count 375 k/uL (150-450); RBC 4.18 m/uL (4.30-5.90); RDW 12.7 % (11.5-15.5); WBC 11.3 k/uL (3.8-10.6)
[2020-09-17] MEDS: dexAMETHasone 2 MG TAB PO SCH (08:55)
[2020-09-17] MEDS: ASCORBIC ACID 500 MG TAB PO SCH (08:55)
[2020-09-17] MEDS: ZINC SULFATE 220 MG CAP PO SCH (08:55)
[2020-09-17] MEDS: FAMOTIDINE 20 MG TAB PO SCH ×2 (08:55→22:40)
[2020-09-17] MEDS: ENOXAPARIN 100 MG/ML SYRINGE SQ SCH (08:55)
[2020-09-17 11:23] LABS: African American GFR (CKD) 131.2 (60.0-200.0); Albumin 3.2 g/dL (3.80-4.90); Albumin/Globulin Ratio 1.45 (1.60-3.17); Anion Gap 7.9 mmol/L (4.00-12.00); BUN/Creat Ratio 21.67 Ratio (12.00-20.00); Calcium 7.8 mg/dL (8.7-10.3); Carbon Dioxide 26.1 mmol/L (21.6-31.8); Globulin 2.2 g/dL (1.6-3.3); Non-African American GFR(CKD) 113.2 (60.0-200.0); Potassium 4.5 mmol/L (3.5-5.5); Total Bilirubin 0.5 mg/dL (0.3-1.2); Total Protein 5.4 g/dL (6.2-8.2)
--- NOTE | 2020-09-17 11:30 | P.PN ---
Subjective Progress Note Date: 09/17/20 55-year-old male patient diagnosed having coronavirus/Coreg 19 infection more t busch 2 weeks ago and he started having shortness of breath. His ago. The patient currently is in the emergency department and is quite hypoxic on 10 L of oxygen nasal cannula. The patient started having symptoms on 08/31/2020 and the patient was having on and off fever. He consulted with a physician. The testing was done and he was positive at that time. His condition got worse and the patient's breathing was getting worse over this past few days and for that reason he came into the hospital. On admission, the patient's ferritin level was 3017, LDH was 1372, CRP was 172. Note that the patient was in the emergency department on 09/11/2020. At times he was diagnosed having COVID 19 and the patient a pulse ox of 94-95% on room air oxygen and the patient was asked to monitor his pulse ox and he was discharged home. He was discharged home on Decadron 6 mg along with Zithromax and albuterol rescue inhaler. Few days following that, the patient came back to the hospital for worsening shortness of breath and hypoxemia. Note that the patient to CAT scans on 09/11/2020 09/16/2020 and there was obvious worsening in the diffuse groundglass bilateral pulmonary infiltrates. No evidence of any pulmonary embolism. Currently is on oxygen at 10 L per minute nasal cannula. His pulse ox is around 88%. Note that the CAT scan of the chest was done on 09/15/2020 raised the possibility of a small filling defect in the right lower lobe pulmonary artery branch and the patient had a Doppler of the lower extremities was negative and the patient was started on anticoagulants and the patient is currently on Lovenox 50 mg subcu every 12 hours. on 09/17/2020, the patient has shown some improvement in his oxygenation the patient is currently on 6 L of oxygen by nasal cannula. Doing slightly better compared to yesterday. Still coughing. He did have some difficulty with sleeping last night. He was awake for extended period of time. He is also on anticoagulation. He is doing well. No nausea. No vomiting. no Diarrhea. no Abdominal pain. Inflammatory markers of repeated tomorrow. Objective - Vital Signs Vital signs: Vital Signs Temp 98.0 F 09/17/20 08:59 Pulse 82 09/17/20 08:59 Resp 18 12/08/20 09:09 BP 88/52 09/17/20 08:59 Pulse Ox 92 L 09/17/20 09:09 Intake & Output 09/16/20 09/17/20 09/17/20 18:59 06:59 18:59 Intake Total 697.74 452 Output Total 650 350 Balance 47.74 452 -350 Weight 94.5 kg Intake: Intake, IV Titration 197.74 Amount Heparin Sod,Pork in 0.45% 122.74 NaCl 25,000 unit In 0.45 % NaCl 1 250ml.bag @ 18 UNITS/KG/HR 16.329 mls/hr IV .[id number] [facility] Rx#: [id number] Sodium Chloride 0.9% 1, 75 000 ml @ 75 mls/hr IV . [id number] [facility] Rx#:[id number] Oral 500 250 Blood Product 0 202 Ffp Pher Conval Covid19 0 202 Acda 4 Unit [id number] Output: Urine 650 350 Other: Voiding Method Urinal Urinal # Voids 2 350 - Exam GENERAL: The patient is alert and oriented x3, not in any acute distress. Well developed, well nourished. the patient is currently on 6 L of oxygen by nasal cannula HEENT: Pupils are round and equally reacting to light. EOMI. No scleral icterus. No conjunctival pallor. Normocephalic, atraumatic. No pharyngeal erythema. No thyromegaly. CARDIOVASCULAR: S1 and S2 present. No murmurs, rubs, or gallops. PULMONARY: Chest is clear to auscultation, no wheezingindications bilateral crackles. ABDOMEN: Soft, nontender, nondistended, normoactive bowel sounds. No palpable organomegaly. MUSCULOSKELETAL: No joint swelling or deformity. EXTREMITIES: No cyanosis, clubbing, or pedal edema. NEUROLOGICAL: Gross neurological examination did not reveal any focal deficits. SKIN: No rashes. - Labs CBC & Chem 7: 09/17/20 06:52 09/17/20 06:52 Labs: Abnormal Lab Results - Last 24 Hours (Table) 09/17/20 09/17/20 Range/Units 06:52 06:52 WBC 11.3 H (3.8-10.6) k/uL RBC 4.18 L (4.30-5.90) m/uL Hgb 12.5 L (13.0-17.5) gm/dL Hct 37.6 L (39.0-53.0) % Neutrophils # 9.8 H (1.3-7.7) k/uL Lymphocytes # 0.8 L (1.0-4.8) k/uL BUN/Creatinine Ratio 21.67 H (12.00-20.00) Ratio Glucose 125 H (70-110) mg/dL Calcium 7.8 L (8.7-10.3) mg/dL AST 43 H (14-35) U/L ALT 89 H (10-49) U/L Total Protein 5.4 L (6.2-8.2) g/dL Albumin 3.20 L (3.80-4.90) g/dL Albumin/Globulin Ratio 1.45 L (1.60-3.17) g/dL Microbiology - Last 24 Hours (Table) 09/15/20 22:05 Blood Culture - Preliminary Blood No Growth after 24 hours Assessment and Plan Plan: 1 acute bilateral Covid 19 pneumonia with interval worsening in the bilateral groundglass pulmonary infiltrates as noted on the CAT scan of the chest that was done on 09/15/2020 and compared to the previous CTA of 09/11/2020.. Original diagnosis was on 08/31/2020 and the patient is currently outside the window for Remdesivir treatment, and he was receiving Decadron on an outpatient basis.likely the patient is feeling slightly better on today's evaluation. He is down to 6 L of oxygen by nasal cannula. 2 questionable filling defect in the right lower lobe pulmonary artery branch,, Doppler of the lower extremities negative. 3 acute hypoxic respiratory failure secondary to above 4 shortness of breath secondary to above 5 elevated inflammatory markers secondary to above Plan the patient is outside the window for Remdesivir Treatment Offered therapeutic dose of Lovenox 1 mg per KG every 12 hours Decadron 6 mg by mouth was started the patient on supplements including vitamin C, vitamin D, Zinc, melatonin and Pepcid oxygen at 6 L per minute nasal cannula and titrated flow to maintain a saturation above 90% We'll continue to follow
[2020-09-17 12:09] LABS: INR 1.11 (0.90-1.11); Prothrombin Time 11.9 sec (9.9-11.9)
--- NOTE | 2020-09-17 13:47 | P.PN ---
Subjective 55-year-old male came in with compensative shortness of breath patient was diagnosed with the cold wind 19 as per the patient he was diagnosed with for more than 2 weeks ago started having shortness of breath for last few days. Patient is positive for coronary patient is requiring 10 L of oxygen. As have elevated d-dimer and other informative markers. Patient is bit hypotensive patient denied any nausea vomiting diarrhea. had mild low-grade fever today. CT angios the chest is consistent with the covid 19 pneumonia. No evidence of pulmonary embolism or any other infiltrate patient did have bronchial and mediastinal adenopathy. She was using azithromycin and Decadron as an outpatient. 09/17/2020 Patient is improving did not send patient is presently in 6 L probably can be discharged tomorrow we will have to wean of Decadron as patient has been on Decadron for long period of time.. Patient received asthma as today. Constitutional: Denied any fatigue denied any fever. Cardio vascular: denied any chest pain, palpitations Gastrointestinal denied any nausea vomiting Pulmonary: Denied any shortness of breath cough Neurologic denied any new focal deficits All inpatient medications were reviewed and appropriate changes in these medications as dictated in the interval history and assessment and plan. Objective - Vital Signs Vital signs: Vital Signs Temp 98.0 F 09/17/20 08:59 Pulse 82 09/17/20 08:59 Resp 18 09/17/20 09:09 BP 88/52 09/17/20 08:59 Pulse Ox 92 L 09/17/20 09:09 Intake & Output 09/16/20 09/17/20 09/17/20 18:59 06:59 18:59 Intake Total 697.74 452 Output Total 650 350 Balance 47.74 452 -350 Weight 94.5 kg Intake: Intake, IV Titration 197.74 Amount Heparin Sod,Pork in 0.45% 122.74 NaCl 25,000 unit In 0.45 % NaCl 1 250ml.bag @ 18 UNITS/KG/HR 16.329 mls/hr IV .[id number] [facility] Rx#: [id number] Sodium Chloride 0.9% 1, 75 000 ml @ 75 mls/hr IV . [id number] [facility] Rx#:[id number] Oral 500 250 Blood Product 0 202 Ffp Pher Conval Covid19 0 202 Acda 4 Unit [id number] Output: Urine 650 350 Other: Voiding Method Urinal Urinal Urinal # Voids 2 350 - Exam PHYSICAL EXAMINATION: GENERAL: The patient is alert and oriented x3, not in any acute distress. Well developed, well nourished. HEENT: Pupils are round and equally reacting to light. EOMI. No scleral icterus. No conjunctival pallor. Normocephalic, atraumatic. No pharyngeal erythema. No thyromegaly. CARDIOVASCULAR: S1 and S2 present. No murmurs, rubs, or gallops. PULMONARY: Chest is clear to auscultation, no wheezing or crackles. ABDOMEN: Soft, nontender, nondistended, normoactive bowel sounds. No palpable organomegaly. MUSCULOSKELETAL: No joint swelling or deformity. EXTREMITIES: No cyanosis, clubbing, or pedal edema. NEUROLOGICAL: Gross neurological examination did not reveal any focal deficits. SKIN: No rashes. Note: Because of [place] [address] isolation, some of the history and physical exam findings are indirect and obtained from nursing staff, and other physician examinations to avoid unnecessary contact with the patient. - Labs CBC & Chem 7: 09/17/20 06:52 09/17/20 06:52 Labs: Abnormal Lab Results - Last 24 Hours (Table) 09/17/20 09/17/20 Range/Units 06:52 06:52 WBC 11.3 H (3.8-10.6) k/uL RBC 4.18 L (4.30-5.90) m/uL Hgb 12.5 L (13.0-17.5) gm/dL Hct 37.6 L (39.0-53.0) % Neutrophils # 9.8 H (1.3-7.7) k/uL Lymphocytes # 0.8 L (1.0-4.8) k/uL BUN/Creatinine Ratio 21.67 H (12.00-20.00) Ratio Glucose 125 H (70-110) mg/dL Calcium 7.8 L (8.7-10.3) mg/dL AST 43 H (14-35) U/L ALT 89 H (10-49) U/L Total Protein 5.4 L (6.2-8.2) g/dL Albumin 3.20 L (3.80-4.90) g/dL Albumin/Globulin Ratio 1.45 L (1.60-3.17) g/dL Microbiology - Last 24 Hours (Table) 09/15/20 22:05 Blood Culture - Preliminary Blood No Growth after 24 hours Assessment and Plan Plan: -Acute hypoxic respiratory failure secondary to Covid 19 can you with the oxygen as needed and close clinical monitoring, patient had elevated d-dimer because of which patient was started on 60 mg twice a day of Lovenox. He does have significantly elevated inflammatory markers patient was started on Decadron as well. Patient is not a candidate for Remdesevir as his symptoms were going on for a while. Infectious disease and pulmonary evaluated the patient. Patient received plasma his respiratory status improved. -Hypovolemic hyponatremia: IV fluids at 75 mL per hour, hyponatremia improved -Elevated liver enzymes secondary to coronavirus infection. -Ruled out pulmonary embolism. -DVT prophylaxis as mentioned above GI prophylaxis with Pepcid
--- NOTE | 2020-09-18 00:35 | PN ---
PROGRESS NOTE DATE OF SERVICE: 09/17/2020 REASON FOR FOLLOWUP: Acute COVID-19 infection. INTERVAL HISTORY: The patient is currently afebrile. Patient is breathing more comfortably. The patient denies having any chest pain. He did have a cough, not bringing up any sputum. No nausea, no vomiting. No abdominal pain or diarrhea. PHYSICAL EXAMINATION: Blood pressure 112/67, pulse of 62, temperature 97.6. He is 97% on 6 L nasal cannula. General description is a middle-aged male lying in bed in no distress. Respiratory system: Unlabored breathing, decreased intensity of breath sounds. No wheeze. Heart S1, S2. Regular rate and rhythm. Abdomen soft. No tenderness. LABS: Hemoglobin is 10.5, white count 11.3, BUN of 13, creatinine 0.6. DIAGNOSTIC IMPRESSION AND PLAN: Patient with acute COVID-19 infection. This patient continues to be out of window period for the Remdesivir. Currently being treated with zinc, dexamethasone. Lovenox has been discontinued. monitor closely. Continue supportive care. MMODL / IJN: [id number] /
[2020-09-18] MEDS: SODIUM CHLORIDE 0.9% 1,000 ML IV SCH (05:57)
[2020-09-18 07:27] LABS: Basophils # (A) 0.1 k/uL (0-0.2); Basophils % (A) 1 %; Eosinophils # (A) 0.1 k/uL (0-0.7); Eosinophils % (A) 1 %; HCT 37.4 % (39.0-53.0); HGB 12.8 gm/dL (13.0-17.5); Lymphocytes # (A) 1.1 k/uL (1.0-4.8); Lymphocytes % (A) 9 %; MCHC 34.4 g/dL (31.0-37.0); MCV 90.1 fL (80.0-100.0); Mean Platelet Volume 7.8; Monocytes # (A) 0.6 k/uL (0-1.0); Monocytes % (A) 5 %; Neutrophils % (A) 84 %; Platelet Count 415 k/uL (150-450); RBC 4.15 m/uL (4.30-5.90); RDW 12.6 % (11.5-15.5)
[2020-09-18] MEDS: ALBUTEROL HFA INHALER INHALATION SCH ×4 (09:23→20:30)
[2020-09-18] MEDS: ZINC SULFATE 220 MG CAP PO SCH (09:39)
[2020-09-18] MEDS: dexAMETHasone 4 MG TAB PO SCH (09:39)
[2020-09-18] MEDS: ASCORBIC ACID 500 MG TAB PO SCH (09:39)
[2020-09-18] MEDS: FAMOTIDINE 20 MG TAB PO SCH ×2 (09:39→20:30)
--- NOTE | 2020-09-18 10:58 | P.PN ---
Subjective Progress Note Date: 09/18/20 on 09/18/2020, the patient is still struggling with his breathing. He is on 6 L of oxygen by nasal cannula. On examination he still having some bilateral basilar crackles. He is on Decadron. He received convalescent plasma. No nausea. No vomiting. No diarrhea. No abdominal pain. No altered mentation. He is feeling weak. His condition essentially the same as yesterday, he feels slightly worse compared to yesterday. No other complaints otherwise for now. Objective - Vital Signs Vital signs: Vital Signs Temp 98.3 F 09/18/20 10:00 Pulse 72 09/18/20 10:00 Resp 18 09/18/20 10:00 BP 94/56 09/18/20 10:00 Pulse Ox 89 L 09/18/20 10:00 Intake & Output 09/17/20 09/18/20 09/18/20 18:59 06:59 18:59 Output Total 350 1600 Balance -350 -1600 Weight 94 kg Output: Urine 350 1600 Other: Voiding Method Urinal Urinal Urinal # Voids 3 - Exam GENERAL: The patient is alert and oriented x3, not in any acute distress. Well developed, well nourished. the patient is currently on 6 L of oxygen by nasal cannula HEENT: Pupils are round and equally reacting to light. EOMI. No scleral icterus. No conjunctival pallor. Normocephalic, atraumatic. No pharyngeal erythema. No thyromegaly. CARDIOVASCULAR: S1 and S2 present. No murmurs, rubs, or gallops. PULMONARY: Chest is clear to auscultation, no wheezingindications bilateral crackles. ABDOMEN: Soft, nontender, nondistended, normoactive bowel sounds. No palpable organomegaly. MUSCULOSKELETAL: No joint swelling or deformity. EXTREMITIES: No cyanosis, clubbing, or pedal edema. NEUROLOGICAL: Gross neurological examination did not reveal any focal deficits. SKIN: No rashes. - Labs CBC & Chem 7: 09/18/20 07:03 09/17/20 06:52 Labs: Abnormal Lab Results - Last 24 Hours (Table) 09/17/20 09/18/20 Range/Units 06:52 07:03 WBC 12.0 H (3.8-10.6) k/uL RBC 4.15 L (4.30-5.90) m/uL Hgb 12.8 L (13.0-17.5) gm/dL Hct 37.4 L (39.0-53.0) % Neutrophils # 10.0 H (1.3-7.7) k/uL BUN/Creatinine Ratio 21.67 H (12.00-20.00) Ratio Glucose 125 H (70-110) mg/dL Calcium 7.8 L (8.7-10.3) mg/dL AST 43 H (14-35) U/L ALT 89 H (10-49) U/L Total Protein 5.4 L (6.2-8.2) g/dL Albumin 3.20 L (3.80-4.90) g/dL Albumin/Globulin Ratio 1.45 L (1.60-3.17) g/dL Microbiology - Last 24 Hours (Table) 09/15/20 22:05 Blood Culture - Preliminary Blood No Growth after 48 hours Assessment and Plan Plan: 1 acute bilateral Covid 19 pneumonia with interval worsening in the bilateral g roundglass pulmonary infiltrates as noted on the CAT scan of the chest that was done on 09/15/2020 and compared to the previous CTA of 09/11/2020.. Original diagnosis was on 08/31/2020 and the patient is currently outside the window for Remdesivir treatment, and he was receiving Decadron on an outpatient basis. keep the patient on oxygen 6 L per minute nasal cannula. 2 questionable filling defect in the right lower lobe pulmonary artery branch,, Doppler of the lower extremities negative. 3 acute hypoxic respiratory failure secondary to above 4 shortness of breath secondary to above 5 elevated inflammatory markers secondary to above Plan the patient is outside the window for Remdesivir Treatment Offered therapeutic dose of Lovenox 1 mg per KG every 12 hours continueDecadron 6 mg by mouth was started the patient on supplements including vitamin C, vitamin D, Zinc, melatonin and Pepcid oxygen at 6 L per minute nasal cannula and titrated flow to maintain a saturation above 90% We'll continue to follow review the chest x-ray in a.m.
--- NOTE | 2020-09-18 11:12 | XR ---
EXAMINATION TYPE: XR chest 1V portable DATE OF EXAM: 09/18/2020 COMPARISON: Prior chest x-ray 09/15/2020 HISTORY: Increased shortness of breath, Covid pneumonia TECHNIQUE: Single frontal view of the chest is obtained. FINDINGS: Bilateral airspace disease persists. No evident pneumothorax or pleural effusion. Cardiac mediastinal silhouette is unchanged. IMPRESSION: Correlate for pneumonia.
[2020-09-18 11:18] LABS: African American GFR (CKD) >90 (>60 ml/min/1.73 sqM); Anion Gap 4 mmol/L; Blood Urea Nitrogen 12 mg/dL (9-20); Carbon Dioxide 24 mmol/L (22-30); Chloride 107 mmol/L (98-107); Glucose 82 mg/dL (74-99); Non-African American GFR(CKD) >90 (>60 ml/min/1.73 sqM); Potassium 4.8 mmol/L (3.5-5.1); Sodium 135 mmol/L (137-145)
[2020-09-18 11:36] LABS: INR 1.07 (0.90-1.11); Prothrombin Time 11.5 sec (9.9-11.9)
--- NOTE | 2020-09-18 15:42 | P.PN ---
Subjective Progress Note Date: 09/18/20 55-year-old male came in with compensative shortness of breath patient was diagnosed with the cold wind 19 as per the patient he was diagnosed with for more than 2 weeks ago started having shortness of breath for last few days. Patient is positive for coronary patient is requiring 10 L of oxygen. As have elevated d-dimer and other informative markers. Patient is bit hypotensive patient denied any nausea vomiting diarrhea. had mild low-grade fever today. CT angios the chest is consistent with the covid 19 pneumonia. No evidence of pulmonary embolism or any other infiltrate patient did have bronchial and mediastinal adenopathy. She was using azithromycin and Decadron as an outpatient. 09/17/2020 Patient is improving did not send patient is presently in 6 L probably can be discharged tomorrow we will have to wean of Decadron as patient has been on Decadron for long period of time.. Patient received asthma as today. 09/18/2020 Patient is seen and evaluated in follow-up today currently remains on high flow at 6 L via nasal cannula and states that his breathing and shortness of breath has not improved and actually feels worse today. Patient was maintained on gentle IV hydration which has been discontinued. Labs within normal limits. Repeat chest x-ray shows persistent airspace disease. Will repeat chest x-ray tomorrow. Incentive spirometer ordered and will instruct patient to continue using at least 10 times every hour while awake. Patient is afebrile. Blood pressures have been on the lower side and will continue to monitor. Constitutional: Denied any fatigue denied any fever. Cardio vascular: denied any chest pain, palpitations Gastrointestinal denied any nausea vomiting Pulmonary: Denied any shortness of breath cough Neurologic denied any new focal deficits All inpatient medications were reviewed and appropriate changes in these medications as dictated in the interval history and assessment and plan. Objective - Vital Signs Vital signs: Vital Signs Temp 98.1 F 09/18/20 14:00 Pulse 65 09/18/20 14:00 Resp 18 09/18/20 14:00 BP 105/65 09/18/20 14:00 Pulse Ox 94 L 09/18/20 14:00 Intake & Output 09/17/20 09/18/20 09/18/20 18:59 06:59 18:59 Output Total 350 1600 Balance -350 -1600 Weight 94 kg Output: Urine 350 1600 Other: Voiding Method Urinal Urinal Urinal # Voids 3 2 - Exam GENERAL: The patient is alert and oriented x3, not in any acute distress. Well developed, well nourished. HEENT: Pupils are round and equally reacting to light. EOMI. No scleral icterus. No conjunctival pallor. Normocephalic, atraumatic. No pharyngeal erythema. No thyromegaly. CARDIOVASCULAR: S1 and S2 present. No murmurs, rubs, or gallops. PULMONARY: Diminished breath sounds with fine crackles noted ABDOMEN: Soft, nontender, nondistended, normoactive bowel sounds. No palpable organomegaly. MUSCULOSKELETAL: No joint swelling or deformity. EXTREMITIES: No cyanosis, clubbing, or pedal edema. NEUROLOGICAL: Gross neurological examination did not reveal any focal deficits. SKIN: No rashes. - Labs CBC & Chem 7: 09/18/20 07:03 09/18/20 07:03 Labs: Abnormal Lab Results - Last 24 Hours (Table) 09/18/20 09/18/20 Range/Units 07:03 07:03 WBC 12.0 H (3.8-10.6) k/uL RBC 4.15 L (4.30-5.90) m/uL Hgb 12.8 L (13.0-17.5) gm/dL Hct 37.4 L (39.0-53.0) % Neutrophils # 10.0 H (1.3-7.7) k/uL Sodium 135 L (137-145) mmol/L Creatinine 0.63 L (0.66-1.25) mg/dL Calcium 8.0 L (8.4-10.2) mg/dL Microbiology - Last 24 Hours (Table) 09/15/20 22:05 Blood Culture - Preliminary Blood No Growth after 48 hours Assessment and Plan Assessment: -Acute hypoxic respiratory failure secondary to Covid 19: Patient currently on 6 L high flow nasal cannula and feeling his respiratory status has worsened, patient had elevated d-dimer because of which patient was started on 60 mg twice a day of Lovenox and PTT was found to be elevated and Lovenox was discontinued. He does have significantly elevated inflammatory markers patient was started on Decadron as well. Patient is not a candidate for Remdesevir as his symptoms were going on for a while. Infectious disease and pulmonary following. Patient received convalescent plasma on 09/16/2020 -Hypovolemic hyponatremia, hyponatremia improved. IV discontinued -Elevated liver enzymes secondary to coronavirus infection. -Ruled out pulmonary embolism. -DVT prophylaxis early ambulation -GI prophylaxis with Pepcid Plan: Continue with current medications and continue to monitor respiratory status closely. Patient remains on 6 L high flow nasal cannula and discussed with nursing staff about weaning FiO2 as tolerated. Repeat chest x-ray today shows persistent bilateral airspace disease with no evident pneumothorax or pleural effusion noted. Instructed the patient to increase activity as tolerated. Incentive spirometer ordered. Sodium improved at 135, current potassium is 4.8, creatinine is 0.63. Will repeat labs and repeat chest x-ray tomorrow. Further recommendations to follow.
--- NOTE | 2020-09-19 00:11 | PN ---
PROGRESS NOTE DATE OF SERVICE: 09/18/2020. REASON FOR FOLLOW UP: Covid 19 infection. INTERVAL HISTORY: Patient is currently afebrile. Patient is breathing more comfortably. The patient denies having any chest pain. Minimal cough. No nausea, no vomiting. No abdominal pain or diarrhea. PHYSICAL EXAMINATION: Blood pressure 122/66, pulse of 65, temperature 97.7. He is 95% on 6 L nasal cannula. General description is a middle-aged male lying in bed in no distress. Respiratory system: Unlabored breathing, decreased breath sounds in the base, with no wheeze. Heart S1, S2. Regular rate and rhythm. Abdomen soft. No tenderness. LABS: Hemoglobin is 12.1, white count 20.0, BUN of 12, creatinine 0.63. DIAGNOSTIC IMPRESSION AND PLAN: 1. Patient with acute COVID-19 infection in this patient admitted to the hospital 1 to 2 weeks off his symptoms. Patient is currently covered with dexamethasone, Lovenox, zinc sulfate and respiratory symptoms status have improved. Continue supportive care. MMODL / IJN: [id number] /
[2020-09-19 06:59] LABS: Basophils # (A) 0.1 k/uL (0-0.2); Basophils % (A) 1 %; Eosinophils # (A) 0.1 k/uL (0-0.7); Eosinophils % (A) 1 %; HCT 47.6 % (39.0-53.0); HGB 15.6 gm/dL (13.0-17.5); Lymphocytes # (A) 1.4 k/uL (1.0-4.8); Lymphocytes % (A) 9 %; MCH 30.5 pg (25.0-35.0); MCHC 32.9 g/dL (31.0-37.0); MCV 92.7 fL (80.0-100.0); Mean Platelet Volume 7.9; Monocytes # (A) 0.6 k/uL (0-1.0); Monocytes % (A) 4 %; Neutrophils # (A) 12.7 k/uL (1.3-7.7); Neutrophils % (A) 84 %; Platelet Count 511 k/uL (150-450); RBC 5.14 m/uL (4.30-5.90); RDW 12.8 % (11.5-15.5); WBC 15.1 k/uL (3.8-10.6)
[2020-09-19 07:14] LABS: D-Dimer 6.47 mg/L FEU (<0.60); INR 1.1 (<1.2)
[2020-09-19 07:15] LABS: Prothrombin Time 11.1 sec (9.0-12.0)
--- NOTE | 2020-09-19 07:52 | XR ---
EXAMINATION TYPE: XR chest 1V DATE OF EXAM: 09/19/2020 COMPARISON: 09/18/2020 INDICATION: Pneumonia TECHNIQUE: Single frontal view of the chest is obtained. FINDINGS: The heart size is normal. The pulmonary vasculature is normal. Peripheral infiltrates are present. Correlate for atypical pneumonia IMPRESSION: 1. Clinical correlation recommended for atypical pneumonia. Exam stable from comparison.
[2020-09-19] MEDS: ZINC SULFATE 220 MG CAP PO SCH (08:36)
[2020-09-19] MEDS: dexAMETHasone 4 MG TAB PO SCH (08:36)
[2020-09-19] MEDS: ALBUTEROL HFA INHALER INHALATION SCH ×4 (08:36→20:41)
[2020-09-19] MEDS: FAMOTIDINE 20 MG TAB PO SCH ×2 (08:36→22:17)
[2020-09-19] MEDS: ASCORBIC ACID 500 MG TAB PO SCH (08:36)
[2020-09-19 10:10] LABS: African American GFR (CKD) 123.1 (60.0-200.0); Anion Gap 10.3 mmol/L (4.00-12.00); BUN/Creat Ratio 15.71 Ratio (12.00-20.00); Carbon Dioxide 22.7 mmol/L (21.6-31.8); Non-African American GFR(CKD) 106.2 (60.0-200.0); Potassium 4.5 mmol/L (3.5-5.5)
--- NOTE | 2020-09-19 11:49 | P.PN ---
Subjective Progress Note Date: 09/19/20 on today's evaluation of 09/19/2020, the patient's condition essentially the same. He remains on 6 L of oxygen by nasal cannula. Repeat chest x-ray was done and the findings are essentially the same and the patient has bilateral pulmonary infiltrates which remain essentially unchanged. He remains on Decadron. He received convalescent plasma. He was out of the window for Remdesivir he had no new complaints otherwise for now. He is using incentive spirometer. He is feeling slightly improved compared to yesterday. Objective - Vital Signs Vital signs: Vital Signs Temp 98.0 F 09/19/20 09:58 Pulse 72 09/19/20 09:58 Resp 16 09/19/20 09:58 BP 86/45 09/19/20 09:58 Pulse Ox 90 L 09/19/20 09:58 Intake & Output 09/18/20 09/19/20 09/19/20 18:59 06:59 18:59 Intake Total 200 Output Total 300 1400 Balance -300 -1400 200 Weight 93 kg Intake: Oral 200 Output: Urine 300 1400 Other: Voiding Method Urinal Urinal Urinal # Voids 2 # Bowel Movements 1 - Exam GENERAL: The patient is alert and oriented x3, not in any acute distress. Well developed, well nourished. the patient is currently on 6 L of oxygen by nasal cannula HEENT: Pupils are round and equally reacting to light. EOMI. No scleral icterus. No conjunctival pallor. Normocephalic, atraumatic. No pharyngeal erythema. No thyromegaly. CARDIOVASCULAR: S1 and S2 present. No murmurs, rubs, or gallops. PULMONARY: Chest is clear to auscultation, no wheezingindications bilateral crackles. ABDOMEN: Soft, nontender, nondistended, normoactive bowel sounds. No palpable organomegaly. MUSCULOSKELETAL: No joint swelling or deformity. EXTREMITIES: No cyanosis, clubbing, or pedal edema. NEUROLOGICAL: Gross neurological examination did not reveal any focal deficits. SKIN: No rashes. - Labs CBC & Chem 7: 09/19/20 06:39 09/19/20 06:39 Labs: Abnormal Lab Results - Last 24 Hours (Table) 09/19/20 09/19/20 Range/Units 06:39 06:39 WBC 15.1 H (3.8-10.6) k/uL Plt Count 511 H (150-450) k/uL Neutrophils # 12.7 H (1.3-7.7) k/uL D-Dimer 6.47 H (<0.60) mg/L FEU Microbiology - Last 24 Hours (Table) 09/15/20 22:05 Blood Culture - Preliminary Blood No Growth after 72 hours Assessment and Plan Plan: 1 acute bilateral Covid 19 pneumonia with interval worsening in the bilateral groundglass pulmonary infiltrates as noted on the CAT scan of the chest that was done on 09/15/2020 and compared to the previous CTA of 09/11/2020.. Original diagnosis was on 08/31/2020 and the patient is currently outside the window for Remdesivir treatment, and he was receiving Decadron on an outpatient basis. keep the patient on oxygen 6 L per minute nasal cannula.repeat chest x-ray was done today and the findings are essentially stable. The patient's oxygenation is also stable and the patient remains on 6 L of oxygen by nasal cannula. 2 questionable filling defect in the right lower lobe pulmonary artery branch,, Doppler of the lower extremities negative. 3 acute hypoxic respiratory failure secondary to above 4 shortness of breath secondary to above 5 elevated inflammatory markers secondary to above Plan the patient is outside the window for Remdesivir and he was treated with De cadron the patient was given convalescent plasma. Lovenox 1 mg per KG every 12 hours continue Decadron 6 mg by mouth was started the patient on supplements including vitamin C, vitamin D, Zinc, melatonin and Pepcid oxygen at 6 L per minute nasal cannula and titrated flow to maintain a saturation above 90% We'll continue to follow review the chest x-ray in a.m.
[2020-09-19] MEDS: ENOXAPARIN 100 MG/ML SYRINGE SQ SCH ×2 (12:50→22:17)
--- NOTE | 2020-09-19 12:55 | P.PN ---
Subjective Progress Note Date: 09/19/20 55-year-old male came in with compensative shortness of breath patient was diagnosed with the cold wind 19 as per the patient he was diagnosed with for more than 2 weeks ago started having shortness of breath for last few days. Patient is positive for coronary patient is requiring 10 L of oxygen. As have elevated d-dimer and other informative markers. Patient is bit hypotensive patient denied any nausea vomiting diarrhea. had mild low-grade fever today. CT angios the chest is consistent with the covid 19 pneumonia. No evidence of pulmonary embolism or any other infiltrate patient did have bronchial and mediastinal adenopathy. She was using azithromycin and Decadron as an outpatient. 09/17/2020 Patient is improving did not send patient is presently in 6 L probably can be discharged tomorrow we will have to wean of Decadron as patient has been on Decadron for long period of time.. Patient received asthma as today. 09/18/2020 Patient is seen and evaluated in follow-up today currently remains on high flow at 6 L via nasal cannula and states that his breathing and shortness of breath has not improved and actually feels worse today. Patient was maintained on gentle IV hydration which has been discontinued. Labs within normal limits. Repeat chest x-ray shows persistent airspace disease. Will repeat chest x-ray tomorrow. Incentive spirometer ordered and will instruct patient to continue using at least 10 times every hour while awake. Patient is afebrile. Blood pressures have been on the lower side and will continue to monitor. 09/19/2020 Patient is seen in follow-up appears to be much more comfortable today and currently on 5 L of oxygen via nasal cannula at 90-92%. Discussed with nursing staff about weaning FiO2 as tolerated. If able to wean down to 3 L and tolerate patient may need to go home with oxygen until improved. Patient is maintained on dexamethasone along with zinc, Lovenox will be resumed as d-dimer still elevated at 6 and vitamin C and E supplements. Patient instructed to continue using incentive spirometer at least 10 times every hour while awake and increased activity as tolerated. Constitutional: Denied any fatigue denied any fever. Cardio vascular: denied any chest pain, palpitations Gastrointestinal denied any nausea vomiting Pulmonary: Reports slightly improved shortness of breath although continues to have shortness of breath with exertion and mild cough Neurologic denied any new focal deficits All inpatient medications were reviewed and appropriate changes in these medications as dictated in the interval history and assessment and plan. Objective - Vital Signs Vital signs: Vital Signs Temp 98.0 F 09/19/20 09:58 Pulse 72 09/19/20 09:58 Resp 16 09/19/20 09:58 BP 86/45 09/19/20 09:58 Pulse Ox 90 L 09/19/20 09:58 Intake & Output 09/18/20 09/19/20 09/19/20 18:59 06:59 18:59 Intake Total 200 Output Total 300 1400 Balance -300 -1400 200 Weight 93 kg Intake: Oral 200 Output: Urine 300 1400 Other: Voiding Method Urinal Urinal Urinal # Voids 2 # Bowel Movements 1 - Exam GENERAL: The patient is alert and oriented x3, not in any acute distress. Well developed, well nourished. HEENT: Pupils are round and equally reacting to light. EOMI. No scleral icterus. No conjunctival pallor. Normocephalic, atraumatic. No pharyngeal erythema. No thyromegaly. CARDIOVASCULAR: S1 and S2 present. No murmurs, rubs, or gallops. PULMONARY: Diminished breath sounds with mild scattered rhonchi noted ABDOMEN: Soft, nontender, nondistended, normoactive bowel sounds. No palpable organomegaly. MUSCULOSKELETAL: No joint swelling or deformity. EXTREMITIES: No cyanosis, clubbing, or pedal edema. NEUROLOGICAL: Gross neurological examination did not reveal any focal deficits. SKIN: No rashes. - Labs CBC & Chem 7: 09/19/20 06:39 09/19/20 06:39 Labs: Abnormal Lab Results - Last 24 Hours (Table) 09/19/20 09/19/20 Range/Units 06:39 06:39 WBC 15.1 H (3.8-10.6) k/uL Plt Count 511 H (150-450) k/uL Neutrophils # 12.7 H (1.3-7.7) k/uL D-Dimer 6.47 H (<0.60) mg/L FEU Microbiology - Last 24 Hours (Table) 09/15/20 22:05 Blood Culture - Preliminary Blood No Growth after 72 hours Assessment and Plan Assessment: -Acute hypoxic respiratory failure secondary to Covid 19: Patient currently on 5 L high flow nasal cannula and feeling slightly improved from yesterday, patient had elevated d-dimer and will resume 90 mg twice a day of Lovenox. Infectious disease and pulmonary following. Patient received convalescent plasma on 09/16/2020 and did not undergo Remdesivir treatment as he was outside of the window -Hypovolemic hyponatremia, hyponatremia improved. IV discontinued -Elevated liver enzymes secondary to coronavirus infection. -Ruled out pulmonary embolism. -DVT prophylaxis lovenox -GI prophylaxis with Pepcid Plan: Continue with current medications and continue to monitor respiratory status closely. Patient weaning Fio2 slowly and now on on 5 L high flow nasal cannula and discussed with nursing staff about weaning FiO2 as tolerated. Instructed t he patient to increase activity as tolerated. Educated the patient on Incentive spirometer use 10 times every hour while awake. Further recommendations to follow. Possible discharge in 24-48 hours depending on the clinical course of the patient and if we can wean FiO2 to at least 3 L via nasal cannula and patient tolerates.
--- NOTE | 2020-09-19 22:44 | PN ---
PROGRESS NOTE DATE OF SERVICE: 09/19/2020 REASON FOR FOLLOWUP: COVID-19 pneumonia. INTERVAL HISTORY: Patient is currently afebrile. The patient is breathing comfortably. Denies having any chest pain. Minimal cough. No nausea, vomiting, abdominal pain or diarrhea. PHYSICAL EXAMINATION: Blood pressure 106/68 with a pulse of 80. Temperature 97.3. He is 93% on 6 L nasal cannula. General description is a middle-aged male lying in bed in no distress. Respiratory system: Unlabored breathing with decreased breath sounds in the bases. No wheeze. Heart S1, S2. Regular rate and rhythm. ABDOMEN: Soft, no tenderness. LAB: Hemoglobin is 15, white count 15.1. D. dimer is up to 6.47. Creatinine 0.7. DIAGNOSTIC IMPRESSION/PLAN: Patient with acute COVID-19 infection in this patient currently covered with Lovenox, Dexamethasone and zinc to continue along with respiratory support and monitor clinical course closely. MMODL / IJN: [id number] /
[2020-09-20 07:39] LABS: Basophils # (A) 0.1 k/uL (0-0.2); Basophils % (A) 1 %; Eosinophils # (A) 0.1 k/uL (0-0.7); Eosinophils % (A) 1 %; HCT 40.5 % (39.0-53.0); HGB 13.6 gm/dL (13.0-17.5); Lymphocytes # (A) 1.3 k/uL (1.0-4.8); Lymphocytes % (A) 11 %; MCH 30.3 pg (25.0-35.0); MCHC 33.6 g/dL (31.0-37.0); MCV 90.2 fL (80.0-100.0); Mean Platelet Volume 8.1; Monocytes # (A) 0.6 k/uL (0-1.0); Monocytes % (A) 5 %; Neutrophils # (A) 9.2 k/uL (1.3-7.7); Neutrophils % (A) 80 %; Platelet Count 374 k/uL (150-450); RBC 4.49 m/uL (4.30-5.90); RDW 12.7 % (11.5-15.5); WBC 11.4 k/uL (3.8-10.6)
[2020-09-20] MEDS: ENOXAPARIN 100 MG/ML SYRINGE SQ SCH ×2 (08:42→20:10)
[2020-09-20] MEDS: FAMOTIDINE 20 MG TAB PO SCH ×2 (08:42→20:11)
[2020-09-20] MEDS: ASCORBIC ACID 500 MG TAB PO SCH (08:42)
[2020-09-20] MEDS: ZINC SULFATE 220 MG CAP PO SCH (08:42)
[2020-09-20] MEDS: dexAMETHasone 4 MG TAB PO SCH (08:43)
[2020-09-20] MEDS: ALBUTEROL HFA INHALER INHALATION SCH ×4 (08:48→20:04)
[2020-09-20 11:03] LABS: African American GFR (CKD) 123.1 (60.0-200.0); Anion Gap 6.1 mmol/L (4.00-12.00); BUN/Creat Ratio 17.14 Ratio (12.00-20.00); Calcium 8.6 mg/dL (8.7-10.3); Carbon Dioxide 27.9 mmol/L (21.6-31.8); Non-African American GFR(CKD) 106.2 (60.0-200.0); Potassium 4.9 mmol/L (3.5-5.5)
[2020-09-20 15:56] VITALS: BMI 29.4
--- NOTE | 2020-09-20 16:19 | P.PN ---
Subjective Progress Note Date: 09/20/20 55-year-old male came in with compensative shortness of breath patient was diagnosed with the cold wind 19 as per the patient he was diagnosed with for more than 2 weeks ago started having shortness of breath for last few days. Patient is positive for coronary patient is requiring 10 L of oxygen. As have elevated d-dimer and other informative markers. Patient is bit hypotensive patient denied any nausea vomiting diarrhea. had mild low-grade fever today. CT angios the chest is consistent with the covid 19 pneumonia. No evidence of pulmonary embolism or any other infiltrate patient did have bronchial and mediastinal adenopathy. She was using azithromycin and Decadron as an outpatient. 09/17/2020 Patient is improving did not send patient is presently in 6 L probably can be discharged tomorrow we will have to wean of Decadron as patient has been on Decadron for long period of time.. Patient received asthma as today. 09/18/2020 Patient is seen and evaluated in follow-up today currently remains on high flow at 6 L via nasal cannula and states that his breathing and shortness of breath has not improved and actually feels worse today. Patient was maintained on gentle IV hydration which has been discontinued. Labs within normal limits. Repeat chest x-ray shows persistent airspace disease. Will repeat chest x-ray tomorrow. Incentive spirometer ordered and will instruct patient to continue using at least 10 times every hour while awake. Patient is afebrile. Blood pressures have been on the lower side and will continue to monitor. 09/19/2020 Patient is seen in follow-up appears to be much more comfortable today and currently on 5 L of oxygen via nasal cannula at 90-92%. Discussed with nursing staff about weaning FiO2 as tolerated. If able to wean down to 3 L and tolerate patient may need to go home with oxygen until improved. Patient is maintained on dexamethasone along with zinc, Lovenox will be resumed as d-dimer still elevated at 6 and vitamin C and E supplements. Patient instructed to continue using incentive spirometer at least 10 times every hour while awake and increased activity as tolerated. 09/20/2020 Patient is seen and evaluated in follow-up and continues to improve slowly on respiratory status. Patient currently on 6 L high flow and will continue at this time. Past with nursing staff along with patient about weaning FiO2 as tolerated and with attempts at weaning patient desats into the mid 80s. Patient was requesting albuterol inhaler as it is scheduled although was not receiving. Patient also instructed to continue using incentive spirometer at least 10 times every hour while awake and continuing to increase activity as tolerated. Discussed with clinical case manager about the possibility of home O2 upon discharge. Patient will need to be weaned down to 3-4 L for safe discharge. Will continue to monitor closely. Pulmonary is following. Constitutional: Denied any fatigue denied any fever. Cardio vascular: denied any chest pain, palpitations Gastrointestinal denied any nausea vomiting Pulmonary: Reports slightly improved shortness of breath although continues to have shortness of breath with exertion and mild cough Neurologic denied any new focal deficits All inpatient medications were reviewed and appropriate changes in these medications as dictated in the interval history and assessment and plan. Objective - Vital Signs Vital signs: Vital Signs Temp 97.7 F 09/20/20 09:53 Pulse 68 09/20/20 09:53 Resp 16 09/20/20 09:53 BP 104/67 09/20/20 09:53 Pulse Ox 94 L 09/20/20 09:53 Intake & Output 09/19/20 09/20/20 09/20/20 18:59 06:59 18:59 Intake Total 200 Output Total 400 Balance 200 -400 Intake: Oral 200 Output: Urine 400 Other: Voiding Method Urinal Urinal Urinal # Voids 2 1 1 - Exam GENERAL: The patient is alert and oriented x3, not in any acute distress. Well developed, well nourished. HEENT: Pupils are round and equally reacting to light. EOMI. No scleral icterus. No conjunctival pallor. Normocephalic, atraumatic. No pharyngeal erythema. No thyromegaly. CARDIOVASCULAR: S1 and S2 present. No murmurs, rubs, or gallops. PULMONARY: Diminished breath sounds with mild scattered rhonchi noted ABDOMEN: Soft, nontender, nondistended, normoactive bowel sounds. No palpable organomegaly. MUSCULOSKELETAL: No joint swelling or deformity. EXTREMITIES: No cyanosis, clubbing, or pedal edema. NEUROLOGICAL: Gross neurological examination did not reveal any focal deficits. SKIN: No rashes. - Labs CBC & Chem 7: 09/20/20 06:49 09/20/20 06:49 Labs: Abnormal Lab Results - Last 24 Hours (Table) 09/20/20 09/20/20 Range/Units 06:49 06:49 WBC 11.4 H (3.8-10.6) k/uL Neutrophils # 9.2 H (1.3-7.7) k/uL Calcium 8.6 L (8.7-10.3) mg/dL Microbiology - Last 24 Hours (Table) 09/15/20 22:05 Blood Culture - Preliminary Blood No Growth after 96 hours Assessment and Plan Assessment: -Acute hypoxic respiratory failure secondary to Covid 19: Patient currently on 6 L high flow nasal cannula and feeling slightly improved from yesterday, patient had elevated d-dimer and will resume 90 mg twice a day of Lovenox. Infectious disease and pulmonary following. Patient received convalescent plasma on 09/16/2020 and did not undergo Remdesivir treatment as he was outside of the window, continuing attempts at weaning FiO2 as tolerated and discussed with nursing staff -Hypovolemic hyponatremia, hyponatremia improved. IV discontinued -Elevated liver enzymes secondary to coronavirus infection. -Ruled out pulmonary embolism. -DVT prophylaxis lovenox -GI prophylaxis with Pepcid Plan: Continue with current medications and continue to monitor respiratory status patrick sely. Patient weaning Fio2 slowly although desats into the low 80s and was placed back on 6 L nasal cannula and discussed with nursing staff about weaning FiO2 as tolerated. Instructed the patient to increase activity as tolerated. Educated the patient on Incentive spirometer use 10 times every hour while awake. Further recommendations to follow. Possible discharge in 24-48 hours depending on the clinical course of the patient and if we can wean FiO2 to at least 3-4 L via nasal cannula and patient tolerates. Case management was consulted about the possibility of requiring oxygen upon discharge secondary to Covid 19.
--- NOTE | 2020-09-20 19:14 | P.PN ---
Subjective Progress Note Date: 09/20/20 oOn 09/20/2020, I'm seeing the patient for a follow-up. He is feeling better. Still on 6 L of oxygen by nasal cannula. His incentive spirometer. Is on Decadron. He received convalescent plasma. No fever. No chills. No night sweats. No nausea or vomiting or diarrhea or abdominal pain. The patient's white cell count is 11.4. The electrolytes are all within normal limits. His calcium level is at 8.6. Objective - Vital Signs Vital signs: Vital Signs Temp 98.4 F 09/20/20 17:51 Pulse 74 09/20/20 17:51 Resp 16 09/20/20 17:51 BP 102/66 09/20/20 17:51 Pulse Ox 93 L 09/20/20 17:51 Intake & Output 09/20/20 09/20/20 09/21/20 06:59 18:59 06:59 Output Total 400 Balance -400 Weight 93 kg Output: Urine 400 Other: Voiding Method Urinal Urinal # Voids 1 1 - Exam GENERAL: The patient is alert and oriented x3, not in any acute distress. Well developed, well nourished. the patient is currently on 6 L of oxygen by nasal cannula HEENT: Pupils are round and equally reacting to light. EOMI. No scleral icterus. No conjunctival pallor. Normocephalic, atraumatic. No pharyngeal erythema. No thyromegaly. CARDIOVASCULAR: S1 and S2 present. No murmurs, rubs, or gallops. PULMONARY: Chest is clear to auscultation, no wheezingindications bilateral crackles. ABDOMEN: Soft, nontender, nondistended, normoactive bowel sounds. No palpable organomegaly. MUSCULOSKELETAL: No joint swelling or deformity. EXTREMITIES: No cyanosis, clubbing, or pedal edema. NEUROLOGICAL: Gross neurological examination did not reveal any focal deficits. SKIN: No rashes. - Labs CBC & Chem 7: 09/20/20 06:49 09/20/20 06:49 Labs: Abnormal Lab Results - Last 24 Hours (Table) 09/20/20 09/20/20 Range/Units 06:49 06:49 WBC 11.4 H (3.8-10.6) k/uL Neutrophils # 9.2 H (1.3-7.7) k/uL Calcium 8.6 L (8.7-10.3) mg/dL Microbiology - Last 24 Hours (Table) 09/15/20 22:05 Blood Culture - Preliminary Blood No Growth after 96 hours Assessment and Plan Plan: 1 acute bilateral Covid 19 pneumonia with interval worsening in the bilateral groundglass pulmonary infiltrates as noted on the CAT scan of the chest that was done on 09/15/2020 and compared to the previous CTA of 09/11/2020.. Original diagnosis was on 08/31/2020 and the patient is currently outside the window for Remdesivir treatment, and he was receiving Decadron on an outpatient basis. keep the patient on oxygen 6 L per minute nasal cannula.repeat chest x-ray was done today and the findings are essentially stable. The patient's oxygenation is also stable and the patient remains on 6 L of oxygen by nasal cannula. He states that he is clinically improving. Nevertheless, his oxidation is unchanged. 2 questionable filling defect in the right lower lobe pulmonary artery branch,, Doppler of the lower extremities negative. The patient remains on Lovenox 90 mg subcu every 12 hours. 3 acute hypoxic respiratory failure secondary to above 4 shortness of breath secondary to above 5 elevated inflammatory markers secondary to above Plan the patient is outside the window for Remdesivir and he was treated with Decadron the patient was given convalescent plasma. Lovenox 1 mg per KG every 12 hours continue Decadron 6 mg by mouth was started the patient on supplements including vitamin C, vitamin D, Zinc, melatonin and Pepcid oxygen at 6 L per minute nasal cannula and titrated flow to maintain a saturation above 90% Clinically he states that he is improving. Nevertheless, he is oxygenation is unchanged and his chest x-ray still showing stable bilateral pulmonary infiltrates from yesterday. We'll continue to follow.
--- NOTE | 2020-09-21 00:33 | PN ---
PROGRESS NOTE DATE OF SERVICE: 09/20/2020 REASON FOR FOLLOWUP: COVID-19 infection. INTERVAL HISTORY: The patient is currently afebrile. Patient is breathing comfortably. However still requiring high-flow nasal oxygen. The patient denies having chest pain. Minimal cough. No nausea, no vomiting. No abdominal pain. No diarrhea. PHYSICAL EXAMINATION: Blood pressure 103/65, pulse of 70, temperature 98.1. He is 91% on 6 L nasal cannula. General description is a middle-aged male lying in bed in no distress. Respiratory system: Unlabored breathing, decreased intensity of breath sounds. No wheeze. HEART: S1, S2. Regular rate and rhythm Abdomen soft. No tenderness. LABS: Hemoglobin 13.1, White count 11.4, BUN of 12, creatinine 0.7. Blood culture negative. DIAGNOSTIC IMPRESSION AND PLAN: Patient with acute COVID-19 infection in this patient who was out of the therapeutic window or benefit from Remdesivir. Currently being treated with Dexamethasone, Lovenox and zinc. Still requiring high-flow oxygen. Continue supportive care. MMODL / IJN: [id number] /
[2020-09-21] MEDS: ENOXAPARIN 100 MG/ML SYRINGE SQ SCH ×2 (07:40→20:10)
[2020-09-21] MEDS: ASCORBIC ACID 500 MG TAB PO SCH (07:41)
[2020-09-21] MEDS: dexAMETHasone 4 MG TAB PO SCH (07:41)
[2020-09-21] MEDS: ZINC SULFATE 220 MG CAP PO SCH (07:41)
[2020-09-21] MEDS: FAMOTIDINE 20 MG TAB PO SCH ×2 (07:41→20:10)
[2020-09-21] MEDS: ALBUTEROL HFA INHALER INHALATION SCH ×4 (08:16→20:40)
--- NOTE | 2020-09-21 11:57 | P.PN ---
Subjective Progress Note Date: 09/21/20 On 09/21/2020, the patient is feeling okay. He was on 6 L of oxygen by nasal cannula. He was weaned down to 3 L and subsequently was brought up to 5 L. He is currently pulse oxing 95%. No new complaints. He is fatigued. No worsening shortness of breath. No other new complaints otherwise for now. Blood work is stable. No fever. No chills. No altered mentation. Objective - Vital Signs Vital signs: Vital Signs Temp 97.6 F 09/21/20 10:00 Pulse 54 L 09/21/20 10:00 Resp 18 09/21/20 10:00 BP 80/42 09/21/20 10:00 Pulse Ox 95 09/21/20 10:00 Intake & Output 09/20/20 09/21/20 09/21/20 18:59 06:59 18:59 Intake Total 500 Output Total 300 Balance 200 Weight 93 kg Intake: Oral 500 Output: Urine 300 Other: Voiding Method Urinal Urinal # Voids 1 2 - Exam GENERAL: The patient is alert and oriented x3, not in any acute distress. Well developed, well nourished. the patient is currently on 6 L of oxygen by nasal cannula HEENT: Pupils are round and equally reacting to light. EOMI. No scleral icterus. No conjunctival pallor. Normocephalic, atraumatic. No pharyngeal erythema. No thyromegaly. CARDIOVASCULAR: S1 and S2 present. No murmurs, rubs, or gallops. PULMONARY: Chest is clear to auscultation, no wheezingindications bilateral crackles. ABDOMEN: Soft, nontender, nondistended, normoactive bowel sounds. No palpable organomegaly. MUSCULOSKELETAL: No joint swelling or deformity. EXTREMITIES: No cyanosis, clubbing, or pedal edema. NEUROLOGICAL: Gross neurological examination did not reveal any focal deficits. SKIN: No rashes. - Labs CBC & Chem 7: 09/20/20 06:49 09/20/20 06:49 Labs: Microbiology - Last 24 Hours (Table) 09/15/20 22:05 Blood Culture - Preliminary Blood No Growth after 120 hours Assessment and Plan Plan: 1 acute bilateral Covid 19 pneumonia with interval worsening in the bilateral groundglass pulmonary infiltrates as noted on the CAT scan of the chest that was done on 09/15/2020 and compared to the previous CTA of 09/11/2020.. Original diagnosis was on 08/31/2020 and the patient is currently outside the window for Remdesivir treatment, and he was receiving Decadron on an outpatient basis. keep the patient on oxygen 6 L per minute nasal cannula.repeat chest x-ray was done today and the findings are essentially stable. The patient's oxygenation is also stable and the patient remains on liters about 2 by nasal cannula on today's evaluation there may be some room for improvement when we can drop her 2 questionable filling defect in the right lower lobe pulmonary artery branch,, Doppler of the lower extremities negative. The patient remains on Lovenox 90 mg subcu every 12 hours. 3 acute hypoxic respiratory failure secondary to above 4 shortness of breath secondary to above 5 elevated inflammatory markers secondary to above Plan the patient is outside the window for Remdesivir and he was treated with Decadron the patient was given convalescent plasma. Lovenox 1 mg per KG every 12 hours continue Decadron 6 mg by mouth was started the patient on supplements including vitamin C, vitamin D, Zinc, melatonin and Pepcid oxygen at 5 L per minute nasal cannula and titrated flow to maintain a saturation above 90%l we'll try to wean him down to 4 liters by nasal cannula today. We'll continue to follow
--- NOTE | 2020-09-21 23:24 | PN ---
PROGRESS NOTE DATE OF SERVICE: 09/21/2020 REASON FOR FOLLOWUP: COVID-19 infection. INTERVAL HISTORY: The patient is currently afebrile. Seems to be breathing more comfortably. The patient able to take a deep breath. Denies having any chest pain. Minimal cough. No nausea, no vomiting. No abdominal pain and no diarrhea. PHYSICAL EXAMINATION: Blood pressure 103/69, pulse of 69, temperature is 97.4. He is 95% on 4 L nasal cannula. General description is a middle-aged male up in the room in no distress. Respiratory system: Unlabored breathing, decreased intensity of the breath sounds. No wheeze. Heart S1, S2. Regular rate and rhythm. ABDOMEN: Soft, no tenderness. LABS: Hemoglobin 13.8, white count 11.4, BUN of 12, creatinine 0.7. Blood culture has been negative. DIAGNOSTIC IMPRESSION AND PLAN: Patient with COVID-19 infection, the patient presented to the Hospital more than 2 weeks. Did not qualify for Remdesivir therapy. The patient is currently with Lovenox, Dexamethasone and zinc and slowing weaning off his oxygen and continue supportive care. MMODL / IJN: [id number] /
--- NOTE | 2020-09-21 23:32 | P.PN ---
Subjective Progress Note Date: 09/21/20 09/21/2020, the patient is feeling okay. He was on 6 L of oxygen by nasal cannula. He was weaned down to 3 L and subsequently was brought up to 5 L. He is currently pulse oxing 95%. No new complaints. He is fatigued. No worsening shortness of breath. No other new complaints otherwise for now. Blood work is stable. No fever. No chills. No altered mentation. Objective - Vital Signs Vital signs: Vital Signs Temp 97.6 F 09/21/20 14:00 Pulse 96 09/21/20 14:00 Resp 18 09/21/20 14:00 BP 93/65 09/21/20 14:00 Pulse Ox 90 L 09/21/20 14:00 Intake & Output 09/20/20 09/21/20 09/21/20 18:59 06:59 18:59 Intake Total 500 Output Total 300 Balance 200 Weight 93 kg Intake: Oral 500 Output: Urine 300 Other: Voiding Method Urinal Urinal # Voids 1 2 3 - Exam GENERAL: The patient is alert and oriented x3, not in any acute distress. Well developed, well nourished. the patient is currently on 6 L of oxygen by nasal cannula HEENT: Pupils are round and equally reacting to light. EOMI. No scleral icterus. No conjunctival pallor. Normocephalic, atraumatic. No pharyngeal erythema. No thyromegaly. CARDIOVASCULAR: S1 and S2 present. No murmurs, rubs, or gallops. PULMONARY: Chest is clear to auscultation, no wheezingindications bilateral crackles. ABDOMEN: Soft, nontender, nondistended, normoactive bowel sounds. No palpable organomegaly. MUSCULOSKELETAL: No joint swelling or deformity. EXTREMITIES: No cyanosis, clubbing, or pedal edema. - Labs CBC & Chem 7: 09/20/20 06:49 09/20/20 06:49 Labs: Microbiology - Last 24 Hours (Table) 09/15/20 22:05 Blood Culture - Preliminary Blood No Growth after 120 hours Assessment and Plan Assessment: 1 acute bilateral Covid 19 pneumonia with interval worsening in the bilateral groundglass pulmonary infiltrates as noted on the CAT scan of the chest that was done on 09/15/2020 and compared to the previous CTA of 09/11/2020.. Original diagnosis was on 08/31/2020 and the patient is currently outside the window for Remdesivir treatment, and he was receiving Decadron on an outpatient basis. keep the patient on oxygen 6 L per minute nasal cannula.repeat chest x-ray was done today and the findings are essentially stable. The patient's oxygenation is also stable and the patient remains on liters about 2 by nasal cannula on today's evaluation there may be some room for improvement when we can drop her 2 questionable filling defect in the right lower lobe pulmonary artery branch,, Doppler of the lower extremities negative. The patient remains on Lovenox 90 mg subcu every 12 hours. 3 acute hypoxic respiratory failure secondary to above 4 shortness of breath secondary to above 5 elevated inflammatory markers secondary to above
[2020-09-22] MEDS: ASCORBIC ACID 500 MG TAB PO SCH (07:24)
[2020-09-22] MEDS: FAMOTIDINE 20 MG TAB PO SCH ×2 (07:24→20:31)
[2020-09-22] MEDS: dexAMETHasone 4 MG TAB PO SCH (07:24)
[2020-09-22] MEDS: ENOXAPARIN 100 MG/ML SYRINGE SQ SCH (07:24)
[2020-09-22] MEDS: ZINC SULFATE 220 MG CAP PO SCH (07:24)
[2020-09-22] MEDS: ALBUTEROL HFA INHALER INHALATION SCH ×4 (08:34→19:40)
--- NOTE | 2020-09-22 12:00 | P.PN ---
Subjective Progress Note Date: 09/22/20 On 09/22/2020, the patient is much improved clinically. The patient is currently down to 3 L of oxygen by nasal cannula. The patient is has a pulse ox of 97%. He is ambulating. His taken a shower today. His breathing is improved and his chest is feeling less restricted on today's evaluation. No new complaints. No nausea or vomiting. No abdominal pain. No chest pain. No blee ding complications. She remains on Decadron orally. Objective - Vital Signs Vital signs: Vital Signs Temp 97.6 F 09/22/20 09:51 Pulse 66 09/22/20 09:51 Resp 20 09/22/20 09:51 BP 97/60 09/22/20 09:51 Pulse Ox 97 09/22/20 09:51 Intake & Output 09/21/20 09/22/20 09/22/20 18:59 06:59 18:59 Other: Voiding Method Urinal # Voids 3 1 3 - Exam GENERAL: The patient is alert and oriented x3, not in any acute distress. Well developed, well nourished. the patient is currently on 3 L of oxygen by nasal cannula HEENT: Pupils are round and equally reacting to light. EOMI. No scleral icterus. No conjunctival pallor. Normocephalic, atraumatic. No pharyngeal erythema. No thyromegaly. CARDIOVASCULAR: S1 and S2 present. No murmurs, rubs, or gallops. PULMONARY: Chest is clear to auscultation, no wheezingindications bilateral crackles. ABDOMEN: Soft, nontender, nondistended, normoactive bowel sounds. No palpable organomegaly. MUSCULOSKELETAL: No joint swelling or deformity. EXTREMITIES: No cyanosis, clubbing, or pedal edema. NEUROLOGICAL: Gross neurological examination did not reveal any focal deficits. SKIN: No rashes. - Labs CBC & Chem 7: 09/20/20 06:49 09/20/20 06:49 Labs: Microbiology - Last 24 Hours (Table) 09/15/20 22:05 Blood Culture - Final Blood No Growth after 144 hours Assessment and Plan Plan: 1 acute bilateral Covid 19 pneumonia with interval worsening in the bilateral groundglass pulmonary infiltrates as noted on the CAT scan of the chest that was done on 09/15/2020 and compared to the previous CTA of 09/11/2020.. Original diagnosis was on 08/31/2020 and the patient is currently outside the window for Remdesivir treatment, and he was receiving Decadron on an outpatient basis. the patient improved slowly and the patient is currently on 3 L of oxygen by nasal cannula with a pulse is 97%. There are down titrating his FiO2 for now. 2 questionable filling defect in the right lower lobe pulmonary artery branch,, Doppler of the lower extremities negative. The patient remains on Lovenox 90 mg subcu every 12 hours. 3 acute hypoxic respiratory failure secondary to above 4 shortness of breath secondary to above 5 elevated inflammatory markers secondary to above Plan the patient is outside the window for Remdesivir and he was treated with Decadron the patient was given convalescent plasma. The patient is currently on 3 L of oxygen by cannula. His oxygenation is improving. Continue Lovenox and consider Eliquis to be started and make sure it's improved considerably to continue this on outpatient basis regarding his pulmonary embolism continue Decadron 6 mg by mouth was started the patient on supplements including vitamin C, vitamin D, Zinc, melatonin and Pepcid Clinically improving. We'll continue to follow.
[2020-09-22] MEDS: APIXABAN 5 MG TAB PO SCH (20:31)
--- NOTE | 2020-09-22 23:06 | P.PN ---
Subjective Progress Note Date: 09/22/20 09/21/2020, the patient is feeling okay. He was on 6 L of oxygen by nasal cannula. He was weaned down to 3 L and subsequently was brought up to 5 L. He is currently pulse oxing 95%. No new complaints. He is fatigued. No worsening shortness of breath. No other new complaints otherwise for now. Blood work is stable. No fever. No chills. No altered mentation. 09/22/2020, the patient is seen and evaluated; reports much improvement. The patient is currently down to 3 L of oxygen by nasal cannula; pulse ox of 97%. He is ambulating; took a shower today. His breathing is improved and his chest is feeling less restricted on today's evaluation. No new complaints. No nausea or vomiting. No abdominal pain. No chest pain. No bleeding complications; remains on Decadron orally. Objective - Vital Signs Vital signs: Vital Signs Temp 97.7 F 09/22/20 14:59 Pulse 67 09/22/20 14:59 Resp 20 09/22/20 14:59 BP 99/63 09/22/20 14:59 Pulse Ox 95 09/22/20 14:59 Intake & Output 09/21/20 09/22/20 09/22/20 18:59 06:59 18:59 Intake Total 200 Balance 200 Intake: Oral 200 Other: Voiding Method Urinal # Voids 3 1 3 - Exam GENERAL: The patient is alert and oriented x3, not in any acute distress. Well developed, well nourished. the patient is currently on 6 L of oxygen by nasal cannula HEENT: Pupils are round and equally reacting to light. EOMI. No scleral icterus. No conjunctival pallor. Normocephalic, atraumatic. No pharyngeal erythema. No thyromegaly. CARDIOVASCULAR: S1 and S2 present. No murmurs, rubs, or gallops. PULMONARY: Chest is clear to auscultation, no wheezingindications bilateral crackles. ABDOMEN: Soft, nontender, nondistended, normoactive bowel sounds. No palpable organomegaly. MUSCULOSKELETAL: No joint swelling or deformity. EXTREMITIES: No cyanosis, clubbing, or pedal edema. - Labs CBC & Chem 7: 09/20/20 06:49 09/20/20 06:49 Labs: Microbiology - Last 24 Hours (Table) 09/15/20 22:05 Blood Culture - Final Blood No Growth after 144 hours Assessment and Plan Assessment: 1 acute bilateral Covid 19 pneumonia with interval worsening in the bilateral groundglass pulmonary infiltrates as noted on the CAT scan of the chest that was done on 09/15/2020 and compared to the previous CTA of 09/11/2020.. Original diagnosis was on 08/31/2020 and the patient is currently outside the window for Remdesivir treatment, and he was receiving Decadron on an outpatient basis. keep the patient on oxygen 6 L per minute nasal cannula.repeat chest x-ray was done today and the findings are essentially stable. The patient's oxygenation is also stable and the patient remains on liters about 2 by nasal cannula on today's evaluation there may be some room for improvement when we can drop her 2 questionable filling defect in the right lower lobe pulmonary artery branch,, Doppler of the lower extremities negative. The patient remains on Lovenox 90 mg subcu every 12 hours. 3 acute hypoxic respiratory failure secondary to above 4 shortness of breath secondary to above 5 elevated inflammatory markers secondary to above
--- NOTE | 2020-09-23 03:48 | PN ---
PROGRESS NOTE DATE OF SERVICE: 09/22/2020 REASON FOR FOLLOWUP: COVID-19 infection. INTERVAL HISTORY: The patient is currently afebrile. Has been breathing comfortably. Patient denies having any chest pain. Breathing has improved. No nausea, no vomiting. No abdominal pain, no diarrhea. PHYSICAL EXAMINATION: Blood pressure 108/77, pulse of 66, temperature 98.4. He is 94% on 2 L nasal cannula. General description is a middle-aged male lying in bed in no distress. RESPIRATORY SYSTEM: Unlabored breathing with decreased intensity of breath sounds. No wheeze. HEART: S1, S2. Regular rate and rhythm. ABDOMEN: Soft, no tenderness. LABS: Hemoglobin 13.6, white count 11.4. Creatinine 0.7. DIAGNOSTIC IMPRESSION AND PLAN: Patient with acute COVID-19 infection in this patient overall clinical response currently on dexamethasone, Eliquis and zinc sulfate to continue and monitor his clinical course closely. MMODL / IJN: [id number] /
[2020-09-23] MEDS: ALBUTEROL HFA INHALER INHALATION SCH ×3 (07:32→14:58)
[2020-09-23] MEDS: dexAMETHasone 4 MG TAB PO SCH (07:49)
[2020-09-23] MEDS: ASCORBIC ACID 500 MG TAB PO SCH (07:49)
[2020-09-23] MEDS: APIXABAN 5 MG TAB PO SCH (07:50)
[2020-09-23] MEDS: FAMOTIDINE 20 MG TAB PO SCH (07:50)
[2020-09-23] MEDS: ZINC SULFATE 220 MG CAP PO SCH (07:50)
--- NOTE | 2020-09-23 13:51 | XR ---
EXAMINATION TYPE: XR chest 1V portable DATE OF EXAM: 09/23/2020 HISTORY: Shortness of breath. COMPARISON: 09/19/2020 TECHNIQUE: Single view of the chest is submitted. FINDINGS: Demonstrated are scattered senescent parenchymal change. Scattered airspace infiltrates are redemonstrated bilaterally. The heart is stable. Hilar and mediastinal structures are within normal limits. Degenerative changes are seen of the dorsal spine. IMPRESSION: 1. Scattered airspace infiltrates are redemonstrated bilaterally.
[2020-09-23 13:58] VITALS: BP 105/58; PULSE 68; RESP 20; TEMP 97.5
--- NOTE | 2020-09-23 17:00 | P.PN ---
Subjective Progress Note Date: 09/23/20 Principal diagnosis: Acute hypoxic respiratory failure secondary to Covid 19 pneumonia. Reevaluated today on 09/23/20, patient seems to be doing well, he is on 2-3 L nasal cannula, O2 saturations 97%. Patient is relatively asymptomatic, hardly any cough, no wheezing, no shortness of breath, hence I would recommend discharging the patient home likely in the next 24 hours. Objective - Vital Signs Vital signs: Vital Signs Temp 97.5 F L 09/23/20 13:57 Pulse 68 09/23/20 13:57 Resp 20 09/23/20 13:57 BP 105/58 09/23/20 13:57 Pulse Ox 96 09/23/20 13:57 Intake & Output 09/22/20 09/23/20 09/23/20 18:59 06:59 18:59 Intake Total 200 Balance 200 Intake: Oral 200 Other: Voiding Method Urinal Urinal # Voids 3 2 - Exam Physical Exam: Revealed a 55-year-old white male in no distress. On 3 L nasal cannula. Head: Atraumatic, normocephalic. HEENT:[Neck is supple.] [No neck masses.] [No thyromegaly.] [No JVD.] Chest: [Symmetrical chest expansion, minimal fine crackles at the bases] Cardiac Exam: [Normal S1 and S2, no S3 gallop, no murmur.] Abdomen: [Soft, nontender, no megaly, no rebound, no guarding, normal bowel sounds.] Extremities: [No clubbing, no edema, no cyanosis.] Neurological Exam: [No focal neurologic deficit.] Alert oriented 3. Psychiatric: Normal mood, affect and normal mental status examination. Skin: No rashes. - Labs CBC & Chem 7: 09/20/20 06:49 09/20/20 06:49 Assessment and Plan Assessment: Impression: Acute hypoxic respiratory failure secondary to Covid 19 pneumonitis. Clinically improving. Abnormal CT angiogram of the chest, questioning filling defect in the right lower lobe, and the patient would have to be committed to 3 months of anticoagulation therapy/eliquis / Xarelto Possible pulmonary embolism, triggered by the covid 19 infection. Condition: Continue the present treatment plan, Continue to Covid 19 cocktail. Continue plans to discharge the patient home tomorrow. May need home oxygen Will definitely eliquis for the next 3 months. Time with Patient: Less than 30
--- NOTE | 2020-09-23 20:36 | P.PN ---
Progress Note - Text Progress Note Date: 09/23/20 REASON FOR FOLLOWUP: COVID-19 infection. INTERVAL HISTORY: The patient is afebrile. Pt is breathing comfortably. Patient denies having any chest pain. Breathing has improved. No nausea, no vomiting. No abdominal pain, no diarrhea. PHYSICAL EXAMINATION: Blood pressure 110/70, pulse of 66, temperature 98.4. He is 94% on 2 L nasal cannula. General description is a middle-aged male lying in bed in no distress. RESPIRATORY SYSTEM: Unlabored breathing with decreased intensity of breath sounds. No wheeze. HEART: S1, S2. Regular rate and rhythm. ABDOMEN: Soft, no tenderness. LABS: reviewed . DIAGNOSTIC IMPRESSION AND PLAN: Patient with acute COVID-19 infection in this patient overall clinical response currently on dexamethasone, Eliquis and zinc sulfate to finish therapy with dexamethasone , eliquis and close out patient follow up
== END 2020-09-23 16:31 | disposition home or self-care (01) | DRG 177 ==
LOC: EC 21:36 → 3SCARD 23:57 → 6NMEDSUR 09-16 12:34 → 4SSUR 09-16 20:27
PROVIDERS: ADMIT Hospitalist; ATTEND Hospitalist
DX: U07.1 COVID-19 (principal); J12.89 Other viral pneumonia; J96.01 Acute respiratory failure with hypoxia; E87.1 Hypo-osmolality and hyponatremia; J44.0 Chronic obstructive pulmonary disease with (acute) lower respiratory infection; E86.1 Hypovolemia; D72.819 Decreased white blood cell count, unspecified; F41.9 Anxiety disorder, unspecified; R79.89 Other specified abnormal findings of blood chemistry; Z79.01 Long term (current) use of anticoagulants; Z87.891 Personal history of nicotine dependence; Z79.899 Other long term (current) drug therapy
CPT/HCPCS: 36415; 71045; 71275; 80048; 80053; 82728; 83605; 83615; 83735; 84145; 85025; 85379; 85610; 85730; 86140; 86850; 86900; 86901; 87040; 87635; 93005; 93970; 94640; 94760; 96365; 96366; 96367; 96372; 96375; 96376; 99291